=== PATIENT | female | born 1935 | race Caucasian/White ===

== ENCOUNTER 2017-10-01 10:37 | Emergency (ER) | payer OTHER ==
[2017-10-01 10:56] VITALS: BP 163/82; PULSE 90; TEMP 98.4; BMI 24.5
--- NOTE | 2017-10-01 11:11 | PDOC ---
History of Present Illness - General History Source: Patient Exam Limitations: No Limitations - History of Present Illness Initial Comments: 10/01/17 12:58 Patient is an 82 year old female with a significant past medical history of asthma, arthritis, and hiatal hernia,who presents to the ED with complaints of diffuse abdominal pain that began 2.5 weeks ago. Patient reports abdominal pain is a burning pain 20/10 pain, that she states radiated from her superpubic region to her left lower quadrant. Patient reports believing pain to be constipation due to her irritable bowel disease, prompting her to take Miralax, Duralex and miracle oil with no relief. She reports taking tylenol for pain x2 days ago with no relief. Patient reports her last bowel movement was last night that looked like jake with her previous bowel movement being x2 days ago. Denies chest pain, Sob. Denies nausea, vomiting. Denies fevers, chills. Denies contact with sick individuals, out of state travelling. Denies dysuria, hematuria, diarrhea. Denies any other symptoms. Allergies: adhesive tape, Aspirin, cephalexin monohydrate, Penicillins Social history: No smoking. No alcohol. No illicit drugs. Surgical history: None PMD: Dr. Jameson Menezes <Everardo Hyatt - Last Filed: 10/01/17 12:58> <Chayo Kelley - Last Filed: 10/01/17 15:47> - General Chief Complaint: Pain, Acute Stated Complaint: ABD PAIN Time Seen by Provider: 10/01/17 11:11 Past History <Everardo Hyatt - Last Filed: 10/01/17 12:58> - Past Medical History Anemia: No Asthma: Yes Cancer: No Cardiac Disorders: No CVA: No COPD: No CHF: No Dementia: No Diabetes: No GI Disorders: Yes (IBS) Disorders: No HTN: Yes Hypercholesterolemia: No Liver Disease: No Seizures: No Thyroid Disease: No - Surgical History Abdominal Surgery: Yes (HERNIA REPAIR) Appendectomy: Yes Cardiac Surgery: No Cholecystectomy: No Lung Surgery: No Neurologic Surgery: No Orthopedic Surgery: No - Immunization History Immunization Up to Date: Yes - Suicide/Smoking/Psychosocial Hx Smoking Status: No Smoking History: Never smoked Have you smoked in the past 12 months: No Number of Cigarettes Smoked Daily: 0 Hx Alcohol Use: No Drug/Substance Use Hx: No Substance Use Type: None <Chayo Kelley - Last Filed: 10/01/17 15:47> - Past Medical History Allergies/Adverse Reactions: Allergies Allergy/AdvReac Type Severity Reaction Status Date / Time adhesive tape Allergy Intermediate Rash Verified 01/18/17 17:50 aspirin Allergy Verified 01/18/17 10:35 cephalexin monohydrate Allergy Verified 01/18/17 10:35 [From Keflex] Penicillins Allergy Verified 01/18/17 10:35 Home Medications: Ambulatory Orders Albuterol Sulfate Inhaler - [Ventolin HFA Inhaler -] 1 - 2 inh PO QID 01/18/17 Potassium Chloride 20 meq PO DAILY 01/18/17 Theophylline Anhydrous [Yony-24] 300 mg PO DAILY 01/18/17 Amlodipine Besylate [Norvasc -] 5 mg PO DAILY 10/01/17 Hydralazine HCl 25 mg PO BID 10/01/17 Lactulose (Oral Use) [Cephulac -] 20 gm PO DAILY #1 bottle 10/01/17 Review of Systems - Review of Systems Able to Perform ROS?: Yes Comments:: 10/01/17 12:59 GENERAL/CONSTITUTIONAL: No fever or chills. No weakness. HEAD, EYES, EARS, NOSE AND THROAT: No change in vision. No ear pain or discharge. No sore throat. CARDIOVASCULAR: No chest pain or shortness of breath. RESPIRATORY: No cough, wheezing, or hemoptysis. GASTROINTESTINAL: +Abdominal pain. +Nausea. +Constipation. No vomiting, diarrhea. . GENITOURINARY: No dysuria, frequency, or change in urination. MUSCULOSKELETAL: No joint or muscle swelling or pain. No neck or back pain. SKIN: No rash NEUROLOGIC: No headache, vertigo, loss of consciousness, or change in strength/ sensation. ENDOCRINE: No increased thirst. No abnormal weight change. HEMATOLOGIC/LYMPHATIC: No anemia, easy bleeding, or history of blood clots. ALLERGIC/IMMUNOLOGIC: No hives or skin allergy. <Everardo Hyatt - Last Filed: 10/01/17 12:58> *Physical Exam - Vital Signs Last Vital Signs Temp Pulse Resp BP Pulse Ox 98.4 F 90 16 163/82 96 10/01/17 10:39 10/01/17 10:39 10/01/17 10:39 10/01/17 10:39 10/01/17 10:39 - Physical Exam Comments: 10/01/17 12:59 GENERAL: Awake, alert, and fully oriented, in no acute distress HEAD: No signs of trauma EYES: PERRLA, EOMI, sclera anicteric, conjunctiva clear ENT: Auricles normal inspection, hearing grossly normal, nares patent, oropharynx clear without exudates. Moist mucosa NECK: Normal ROM, supple, no lymphadenopathy, JVD, or masses LUNGS: Breath sounds equal, clear to auscultation bilaterally. No wheezes, and no crackles HEART: Regular rate and rhythm, normal S1 and S2, no murmurs, rubs or gallops ABDOMEN: Soft, nontender, normoactive bowel sounds. No guarding, no rebound. No masses EXTREMITIES: Normal range of motion, no edema. No clubbing or cyanosis. No cords, erythema, or tenderness NEUROLOGICAL: Cranial nerves II through XII grossly intact. Normal speech, normal gait SKIN: Warm, Dry, normal turgor, no rashes or lesions noted. <Everardo Hyatt - Last Filed: 10/01/17 12:58> - Vital Signs Last Vital Signs Temp Pulse Resp BP Pulse Ox 98.4 F 90 16 163/82 96 10/01/17 10:39 10/01/17 10:39 10/01/17 10:39 10/01/17 10:39 10/01/17 10:39 <Chayo Kelley - Last Filed: 10/01/17 15:47> ED Treatment Course - LABORATORY CBC & Chemistry Diagram: 10/01/17 12:06 10/01/17 12:06 - ADDITIONAL ORDERS Additional order review: Laboratory Results 10/01/17 10/01/17 10/01/17 12:06 12:06 12:06 Sodium 149 H Potassium 3.6 Chloride 110 H Carbon Dioxide 29 Anion Gap 10 BUN 23 H Creatinine 1.1 H Creat Clearance w eGFR 47.55 Random Glucose 114 H Lactic Acid 1.5 Calcium 10.1 Total Bilirubin 0.6 AST 29 ALT 33 Alkaline Phosphatase 71 Total Protein 6.6 Albumin 4.2 Urine Color Ltyellow Urine Appearance Clear Urine pH 7.0 D Ur Specific [place] 1.012 Urine Protein 2+ H Urine Glucose (UA) Negative Urine Ketones Trace H Urine Blood Negative Urine Nitrite Negative Urine Bilirubin Negative Urine Urobilinogen Negative Ur Leukocyte Esterase 1+ H Urine WBC (Auto) <1 Urine RBC (Auto) 5 Ur Epithelial Cells Rare 10/01/17 12:06 RBC 4.73 MCV 89.0 MCHC 34.3 RDW 14.3 MPV 8.6 Neutrophils % 81.6 Lymphocytes % 9.8 D Monocytes % 6.1 Eosinophils % 1.7 Basophils % 0.8 <Everardo Hyatt - Last Filed: 10/01/17 12:58> - LABORATORY CBC & Chemistry Diagram: 10/01/17 12:06 10/01/17 12:06 <Chayo Kelley - Last Filed: 10/01/17 15:47> Medical Decision Making - Medical Decision Making 10/01/17 15:43 Pt presents to the ED complaining of a several week history of generalized abdominal pain and constipation. Differential included diverticulitis, less likely UTI, less likely mesenteric ischemia. Abdomen was non tender on my exam , but given patient's age, CT abdomen was performed and is negative for acute changes except for constipation. Will treat with lactulose and discharge home with follow up with PMD. 10/01/17 15:45 <Chayo Kelley - Last Filed: 10/01/17 15:47> *DC/Admit/Observation/Transfer - Attestations Scribe Attestion: 10/01/17 13:00 Documentation prepared by Everardo Hyatt, acting as medical billing manager for Chayo Kelley MD. <Everardo Hyatt - Last Filed: 10/01/17 12:58> - Discharge Dispostion Decision to Admit order: No <Chayo Kelley - Last Filed: 10/01/17 15:47> Diagnosis at time of Disposition: Abdominal pain Qualifiers: Abdominal location: generalized Qualified Code(s): R10.84 - Generalized abdominal pain - Discharge Dispostion Disposition: HOME Condition at time of disposition: Good - Prescriptions Prescriptions: Lactulose (Oral Use) [Cephulac -] 20 gm PO DAILY #1 bottle - Patient Instructions Printed Discharge Instructions: DI for Abdominal Pain-Adult Additional Instructions: return to the ED for severe pain, severe nausea and vomiting, bloody vomit or stool, pain with fever, other new or worsening symptoms. Make sure that you call Dr. Menezes on Wednesday for follow up.
[2017-10-01 12:31] LABS: BASO % 0.8 % (0-2.0); EOS % 1.7 % (0-4.5); HEMATOCRIT 42.1 % (32.4-45.2); HEMOGLOBIN 14.4 GM/dL (10.7-15.3); LYMPH % 9.8 % (8-40); MCH 30.5 pg (25.7-33.7); MCHC 34.3 g/dl (32.0-36.0); MEAN PLT VOLUME 8.6 fl (7.5-11.1); MONO % 6.1 % (3.8-10.2); NEUT % 81.6 % (42.8-82.8); PLATELET COUNT 136 K/MM3 (134-434); RBC 4.73 M/mm3 (3.60-5.2); RDW 14.3 % (11.6-15.6); WHITE BLOOD COUNT 8.6 K/mm3 (4.0-10.0)
[2017-10-01 12:33] LABS: URINE APPEARANCE CLEAR; URINE BILIRUBIN NEGATIVE (<2.0 mg/dL); URINE COLOR LTYELLOW; URINE GLUCOSE (UA) NEGATIVE (NEGATIVE); URINE KETONE TRACE (NEGATIVE); URINE NITRITE NEGATIVE (NEGATIVE); URINE UROBILINOGEN NEGATIVE mg/dL (0.2-1.0)
[2017-10-01 12:38] LABS: URINE LEUK ESTERASE 1+ (NEGATIVE); URINE PROTEIN 2+ (NEGATIVE)
[2017-10-01 12:50] LABS: ALBUMIN 4.2 g/dl (3.4-5.0); ALK PHOS 71 U/L (45-117); ANION GAP 10 (8-16); BILIRUBIN,TOTAL 0.6 mg/dL (0.2-1.0); BLOOD UREA NITROGEN 23 mg/dL (7-18); CALCIUM 10.1 mg/dL (8.5-10.1); CHLORIDE 110 mmol/L (98-107); CO2 29 mmol/L (21-32); CREATININE 1.1 mg/dL (0.55-1.02); GLUCOSE,RANDOM 114 mg/dL (74-106); POTASSIUM 3.6 mmol/L (3.5-5.1); SGOT/AST 29 U/L (15-37); SGPT/ALT 33 U/L (12-78); SODIUM 149 mmol/L (136-145); TOT PROT 6.6 g/dl (6.4-8.2)
[2017-10-01 12:52] LABS: EPI CELLS RARE /HPF (FEW)
[2017-10-01] MEDS ORDERED: ACETAMINOPHEN 1000 MG/100 ML VIAL (NON FORMULARY) IVPB ONE (14:46)
[2017-10-01] MEDS ORDERED: LACTULOSE 20 GM/30 ML UDC (FOR ORAL USE ONLY) PO ONE (15:35)
[2017-10-01] MEDS ORDERED: LACTULOSE 20 GM/30 ML UDC (FOR ORAL USE ONLY) ONE (16:00)
== END 2017-10-01 16:30 | disposition home or self-care (01) ==
LOC: JER 10:37
DX: R10.84 Generalized abdominal pain (principal); K59.00 Constipation, unspecified; J45.909 Unspecified asthma, uncomplicated
CPT/HCPCS: 36415; 74176-TC; 80053; 81003; 81015; 83605; 85025; 99281-25

== ENCOUNTER 2019-10-25 15:19 | Inpatient (IN) | payer OTHER ==
[2019-10-25 16:02] LABS: BASO % 0.8 % (0-2.0); EOS % 1.7 % (0-4.5); HEMATOCRIT 38.6 % (32.4-45.2); HEMOGLOBIN 12.9 GM/dL (10.7-15.3); LYMPH % 8.4 % (8-40); MCH 30.7 pg (25.7-33.7); MCHC 33.5 g/dl (32.0-36.0); MEAN CELL VOLUME 91.6 fl (80-96); MEAN PLT VOLUME 8.9 fl (7.5-11.1); NEUT % 81.1 % (42.8-82.8); PLATELET COUNT 132 K/MM3 (134-434); RBC 4.21 M/mm3 (3.60-5.2); RDW 15.3 % (11.6-15.6); WHITE BLOOD COUNT 7.5 K/mm3 (4.0-10.0)
[2019-10-25 16:10] LABS: EPI CELLS 8 /uL (0-25.1); HYALINE CASTS 1 /uL (0-3.1); PH,URINE 7.5 (5.0-8.0); URINE APPEARANCE CLEAR; URINE BACTERIA 122 /uL (0-1359); URINE BILIRUBIN NEGATIVE (NEGATIVE); URINE COLOR YELLOW; URINE GLUCOSE (UA) NEGATIVE (NEGATIVE); URINE KETONE NEGATIVE (NEGATIVE); URINE LEUK ESTERASE TRACE (NEGATIVE); URINE NITRITE NEGATIVE (NEGATIVE); URINE PROTEIN 3+ (NEGATIVE); URINE RBC 5 /uL (0-23.9); URINE UROBILINOGEN 0.2 mg/dL (0.2-1.0); URINE WBC 31 /uL (0-25.8)
[2019-10-25 16:11] LABS: INR 1.05 (0.83-1.09); PROTHROMBIN TIME (PATIENT) 12.4 SEC (9.7-13.0)
[2019-10-25 16:32] LABS: ALK PHOS 109 U/L (45-117); ANION GAP 7 MMOL/L (8-16); BILIRUBIN,TOTAL 0.9 mg/dL (0.2-1); BLOOD UREA NITROGEN 41.2 mg/dL (7-18); CALCIUM 9.8 mg/dL (8.5-10.1); CHLORIDE 108 mmol/L (98-107); CO2 30 mmol/L (21-32); CREATININE 1.7 mg/dL (0.55-1.3); GLUCOSE,RANDOM 112 mg/dL (74-106); POTASSIUM 4.3 mmol/L (3.5-5.1); SGOT/AST 31 U/L (15-37); SGPT/ALT 41 U/L (13-61); SODIUM 145 mmol/L (136-145); TOT PROT 6.3 g/dl (6.4-8.2)
--- NOTE | 2019-10-25 18:17 | PDOC ---
Documentation entered by Lindsay Aguila SCRIBE, acting as scribe for Anupama Coleman MD. Anupama Coleman MD: This documentation has been prepared by the earnestineibeMingo Lincy, SCRIBE, under my direction and personally reviewed by me in its entirety. I confirm that the documentation accurately reflects all work, treatment, procedures, and medical decision making performed by me. 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 Garcia for concerns for elevated blood pressure blurry vision and worsening leg edema. In the office patient was found to be 200/110 despite taking multiple anti hypertensives at home. she was prescribed imdur 60, but did not start taking it yet. She does also complain of some mild shortness of breath states that she did have 3 separate intermittent falls over the last several weeks patient states there was one episode a few weeks back when she was found on the floor 10/13 where she has no recollection of how she wound up there . states she was sitting in chair watching tv, next thing found her self on floor. was able to ambulate following, did not see physician at that time.most recent falling was yesterday, she was sitting in chair, had sense chair was tipping, she was falling, but did not actually fall.. at this time she is denying any focal weakness no nausea no vomiting no current chest pain 10/25/19 18:12 - Physicial Exam PE: 10/25/19 18:14 Awake alert no acute distress lungs are with crackles at bilateral bases heart is irregularly irregular tachycardia no murmurs rubs or gallops abdomen is soft nontender extremities are noted for bilateral edema no calf tenderness 2+ DP PT pulses nuero CN II - XiI intact. 5/5 left upper and lower, very subtle right upper and lower ext weakness. 4+/ 5. finger to nose intact. gait not tested. speech clear. alert oriented x 3. 10/25/19 19:45 - Medical Decision Making 08/19/20 18:15 84-year-old history of CKD hypertension here today with resistant hypertension blurry vision and frequent falls Differential diagnosis includes hypertensive urgency versus hypertensive emergency inclusive of possible pulmonary edema stroke worsening renal failure patient is also having blurry vision. Plan CT head to rule out any CVA or traumatic injury from her falls CBC CMP troponin UA EKG chest x-ray patient will likely require admission for persistent hypertension. Chest x-ray shows mild congestive changes consistent with her creatinine is elevated from baseline of 1.3-1.7 consistent with worsening renal failure. Plan to treat her hypertension with nitroglycerin to unload preload in addition to diuretics. Patient will be admitted will consult her box storage worker Dr. Chin may be admitted to telemetry for hypertensive emergency 10/25/19 18:18 egk with new onset a flutter. cxr mild congestive changes. ct head no acute pathology. may consider MRI on admission due to subtle right sided weakness. 10/25/19 18:[address] haider, note, pt was supposed to initiate imdur 60 mg for resistant htn, filed script but did not start it. 10/25/19 19:46 Heart Score/ECG Review #1 General ECG Interpretation: Normal Rate, Normal Intervals, No acute ischemic changes Compared to previous ECG there are: Other (atrial flutter, rate [address] bpm[address] left axis. no st elevation or depression.) Discharge - Discharge Information Problems reviewed: Yes Clinical Impression/Diagnosis: DONN (acute kidney injury), Hypertensive emergency, Pulmonary edema, Flutter- fibrillation - Admission Yes - Follow up/Referral - Patient Discharge Instructions - Post Discharge Activity
--- NOTE | 2019-10-25 18:25 | PDOC ---
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 Patient reports that over the past months she has had a number of falls w/ or w/o syncopal events (patient is unsure of exact details regarding these episodes). She reports that since yesterday she has had a headache, blurry vision, and instability while walking. She presented to her mixing tank operator this AM who took her BP which was in the 200s and recommended she present to the ER for further evaluation. Patient also reports some SOB, denies fever, chills, N/V/D, chest pain, loss of strength or sensation, or speech difficulties. Constitutional: No Weight Change, No Fever, No Chills, No Night Sweats, No Fatigue, No Malaise ENT/Mouth: No Hearing Changes, No Ear Pain, No Nasal Congestion, No Sinus Pain, No Hoarseness, No sore throat, No Rhinorrhea, No Swallowing Difficulty Eyes: No Eye Pain, No Swelling, No Redness, No Foreign Body, No Discharge Cardiovascular: No Chest Pain, No PND, No Orthopnea, No Claudication, No Edema, No Palpitations Respiratory: No Cough, No Sputum, No Wheezing, No Smoke Exposure, No Dyspnea Gastrointestinal: No Nausea, No Vomiting, No Diarrhea, No Constipation, No Pain, No Heartburn, No Anorexia, No Dysphagia, No Hematochezia, No Melena, No Flatulence, No Jaundice Genitourinary: No Dysmenorrhea, No DUB, No Dyspareunia, No Dysuria, No Urinary Frequency, No Hematuria, No Urinary Incontinence, No Urgency, No Flank Pain, No Urinary Flow Changes, No Hesitancy Musculoskeletal: No Arthralgias, No Myalgias, No Joint Swelling, No Joint Stiffness, No Back Pain, No Neck Pain, No Injury History Skin: No Skin Lesions, No Pruritis, No Hair Changes, No Breast/Skin Changes, No Nipple Discharge Neuro: No Weakness, No Numbness, No Paresthesias, No Dizziness, No Coordination Changes Psych: No Anxiety/Panic, No Depression, No Insomnia, No Personality Changes, No Delusions, No Rumination, No SI/HI/AH/VH, No Social Issues, No Memory Changes, No Violence/Abuse Hx., No Eating Concerns Heme/Lymph: No Bruising, No Bleeding, No Transfusions History, No Lymphadenopathy Endocrine: No Polyuria, No Polydipsia, No Temperature Intolerance Past History - Medical History Allergies/Adverse Reactions: Allergies Allergy/AdvReac Type Severity Reaction Status Date / Time adhesive tape Allergy Intermediate Rash Verified 10/25/19 15:37 aspirin Allergy Verified 10/25/19 15:37 cephalexin monohydrate Allergy Verified 10/25/19 15:37 [From Keflex] Penicillins Allergy Verified 10/25/19 15:37 Home Medications: Ambulatory Orders Albuterol Sulfate Inhaler - [Ventolin HFA Inhaler -] 1 - 2 inh PO QID 01/18/17 Potassium Chloride 20 meq PO DAILY 01/18/17 Theophylline Anhydrous [Yony-24] 300 mg PO DAILY 01/18/17 Hydralazine HCl 25 mg PO BID 10/01/17 Miscellaneous Medical Supply [Outpatient Order] 1 each ASDIR #1 mis 10/08/17 Diltiazem Cd [Cardizem Cd -] 120 mg PO DAILY 10/25/19 Furosemide [Lasix -] 40 mg PO DAILY 10/25/19 Isosorbide Mononitrate [Isosorbide Mononitrate ER] 60 mg PO DAILY 10/25/19 Losartan Potassium [Cozaar] 100 mg PO DAILY 10/25/19 Anemia: No Asthma: Yes Cancer: No Cardiac Disorders: No CVA: No COPD: No CHF: No Dementia: No Diabetes: No GI Disorders: Yes (IBS) Disorders: No HTN: Yes Hypercholesterolemia: No Liver Disease: No Seizures: No Thyroid Disease: No Other medical history: ovarian cysts - Surgical History Abdominal Surgery: Yes (HERNIA REPAIR) Appendectomy: Yes Cardiac Surgery: No Cholecystectomy: No Lung Surgery: No Neurologic Surgery: No Orthopedic Surgery: No - Reproductive History Is Patient Now?: No - Immunization History Immunization Up to Date: Yes - Psycho-Social/Smoking History Smoking Status: No Smoking History: Unknown if ever smoked Have you smoked in the past 12 months: No Number of Cigarettes Smoked Daily: 0 - Substance Abuse Hx (Audit-C & DAST Scrn) How often the patient has a drink containing alcohol: Never Score: In Men: 4 or > Positive; In Women: 3 or > Positive: 0 Screen Result (Pos requires Nsg. Audit-10AR): Negative In the last yr the pt used illegal drug/Rx for NonMed reason: No Score: Yes response is considered Positive: 0 Screen Result (Positive result requires Nsg. DAST-10): Negative *Physical Exam - Vital Signs Last Vital Signs Temp Pulse Resp BP Pulse Ox 98.1 F 91 H 20 161/101 H 99 10/25/19 15:20 10/25/19 18:05 10/25/19 18:05 10/25/19 18:05 10/25/19 18:05 - Physical Exam General Appearance: Yes: Nourished, Appropriately Dressed HEENT: positive: EOMI, VITOR, Normal ENT Inspection, Normal Voice Neck: positive: Trachea midline, Normal Thyroid Respiratory/Chest: positive: Crackles Cardiovascular: positive: S1, S2, Tachycardia Gastrointestinal/Abdominal: positive: Normal Bowel Sounds, Flat Musculoskeletal: positive: Normal Inspection Extremity: positive: Normal Capillary Refill Integumentary: positive: Dry, Warm Neurologic: 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: 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 II-XII NML intact, Fully Oriented, Alert, Normal Mood/Affect, Normal Response, Motor Strength 5/5 ED Treatment Course - LABORATORY CBC & Chemistry Diagram: 10/25/19 15:40 10/25/19 15:40 - ADDITIONAL ORDERS Additional order review: Laboratory Results 10/25/19 10/25/19 10/25/19 15:55 15:40 15:40 PT with INR 12.40 INR 1.05 Sodium 145 Potassium 4.3 Chloride 108 H Carbon Dioxide 30 Anion Gap 7 L BUN 41.2 H Creatinine 1.7 H Est GFR (CKD-EPI)AfAm 31.54 Est GFR (CKD-EPI)NonAf 27.22 Random Glucose 112 H Calcium 9.8 Total Bilirubin 0.9 AST 31 ALT 41 Alkaline Phosphatase 109 Creatine Kinase 99 Troponin I < 0.02 Total Protein 6.3 L Albumin 4.0 Urine Color Yellow Urine Appearance Clear Urine pH 7.5 Ur Specific [place] 1.012 Urine Protein 3+ H Urine Glucose (UA) Negative Urine Ketones Negative Urine Blood Negative Urine Nitrite Negative Urine Bilirubin Negative Urine Urobilinogen 0.2 Ur Leukocyte Esterase Trace Urine WBC (Auto) 31 Urine RBC (Auto) 5 Urine Casts (Auto) 1 U Epithel Cells (Auto) 8 Urine Bacteria (Auto) 122 10/25/19 15:40 RBC 4.21 MCV 91.6 MCHC 33.5 RDW 15.3 MPV 8.9 Neutrophils % 81.1 Lymphocytes % 8.4 D Monocytes % 8.0 Eosinophils % 1.7 Basophils % 0.8 - RADIOLOGY Radiology Studies Ordered: Category Date Time Status HEAD CT WITHOUT CONTRAST [CT] Stat CT Scan 10/25/19 16:27 Completed CHEST PA & LAT [RAD] Stat Radiology 10/25/19 16:26 Completed Medical Decision Making - Medical Decision Making 84 YOF h/o CKD, HTN, Asthma, who 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 Patient reports that over the past months she has had a number of falls w/ or w/o syncopal events (patient is unsure of exact details regarding these episodes). She reports that since yesterday she has had a headache, blurry vision, and instability while walking. She presented to her mixing tank operator this AM who took her BP which was in the 200s and recommended she present to the ER for further evaluation. Patient also reports some SOB, denies fever, chills, N/V/D, chest pain, loss of strength or sensation, or speech difficulties. On arrival patients BP was in 200s, her O2 sat was 90s on room air, vitals otherwise wnl. Physical exam reveals bilateral lower extremity edema. ddx: hypertensive emergency, CHF, DONN, CVA plan: CT head, CXR, CBC, CMP, sublingual nitroglycerine, nitropaste, furosemide. reassess: patients BP is 170s, CT head negative, CXR reveals minor pulmonary edema, creatinine 1.7 (baseline 1.38), will admit patient to tele for CHF, hypertensive emergency, and DONN dispo: admit to Dr. Monzon. Discharge - Discharge Information Problems reviewed: Yes Clinical Impression/Diagnosis: DONN (acute kidney injury), Hypertensive emergency, Pulmonary edema, Flutter- fibrillation - Follow up/Referral - Patient Discharge Instructions - Post Discharge Activity
[2019-10-25] MEDS ORDERED: NITROGLYCERIN SUBLINGUAL 1/150 0.4 MG TAB SL ONE (18:33)
[2019-10-25] MEDS ORDERED: NITROGLYCERIN 2% OINTMENT - 1GM PACKET TD ONE ×2 (18:33→18:45)
[2019-10-25] MEDS ORDERED: FUROSEMIDE 40 MG/4 ML INJECTABLE VIAL IVPUSH ONE (18:45)
[2019-10-25] MEDS ORDERED: FUROSEMIDE 40 MG/4 ML INJECTABLE VIAL ONE (18:57)
[2019-10-25] MEDS ORDERED: HEPARIN NA (PORCINE) 5,000 UNITS/ML 1ML VIAL IVPUSH PRN ×3 (21:58→22:04)
[2019-10-25] MEDS ORDERED: NIFEdipine 10 MG CAPSULE (FP) PO SCH (22:00)
[2019-10-25] MEDS ORDERED: HEPARIN NA (PORCINE) 5,000 UNITS/ML 1ML VIAL SQ SCH (22:00)
[2019-10-25] MEDS ORDERED: NIFEdipine 10 MG CAPSULE (FP) PO ONE (22:03)
--- NOTE | 2019-10-25 23:20 | PN ---
Teaching Attending Note Name of Resident: Ghassan Beltrán ATTENDING PHYSICIAN STATEMENT I saw and evaluated the patient. I reviewed the resident's note and discussed the case with the resident. I agree with the resident's findings and plan as documented. SUBJECTIVE: 84 years old female with PMH of CKD stage 3, HTN, ?CHF was referred from nephrology office due to elevated BP. She c/o blurry vision,dizziness and mild shortness of breath. She also reported b/l worsening LE swelling and functional decline. She also reports gait instabilty She denies chest pain, nausea,vomiting, fever after coming to Ed she was found to have Chest x-ray shows mild congestive changes consistent with her creatinine is elevated from baseline of 1.3-1.7 he was found to have high BP in ED - 211/124. she also had blurry vision and headache EKg showed A flutter ? new onset OBJECTIVE: Last Vital Signs Temp Pulse Resp BP Pulse Ox 98.1 F 90 17 177/107 H 99 10/25/19 15:20 10/25/19 18:25 10/25/19 18:25 10/25/19 19:08 10/25/19 18:25 Laboratory Results - last 24 hr 10/25/19 10/25/19 10/25/19 15:40 15:40 15:40 WBC 7.5 RBC 4.21 Hgb 12.9 Hct 38.6 MCV 91.6 MCH 30.7 MCHC 33.5 RDW 15.3 Plt Count 132 L MPV 8.9 Absolute Neuts (auto) 6.0 Neutrophils % 81.1 Lymphocytes % 8.4 D Monocytes % 8.0 Eosinophils % 1.7 Basophils % 0.8 Nucleated RBC % 0 PT with INR 12.40 INR 1.05 PTT (Actin FS) Sodium 145 Potassium 4.3 Chloride 108 H Carbon Dioxide 30 Anion Gap 7 L BUN 41.2 H Creatinine 1.7 H Est GFR (CKD-EPI)AfAm 31.54 Est GFR (CKD-EPI)NonAf 27.22 Random Glucose 112 H Calcium 9.8 Total Bilirubin 0.9 AST 31 ALT 41 Alkaline Phosphatase 109 Creatine Kinase 99 Troponin I < 0.02 Total Protein 6.3 L Albumin 4.0 Urine Color Urine Appearance Urine pH Ur Specific [place] Urine Protein Urine Glucose (UA) Urine Ketones Urine Blood Urine Nitrite Urine Bilirubin Urine Urobilinogen Ur Leukocyte Esterase Urine WBC (Auto) Urine RBC (Auto) Urine Casts (Auto) U Epithel Cells (Auto) Urine Bacteria (Auto) 10/25/19 10/25/19 15:55 23:40 WBC RBC Hgb Hct MCV MCH MCHC RDW Plt Count MPV Absolute Neuts (auto) Neutrophils % Lymphocytes % Monocytes % Eosinophils % Basophils % Nucleated RBC % PT with INR 12.50 INR 1.06 PTT (Actin FS) 34.0 Sodium Potassium Chloride Carbon Dioxide Anion Gap BUN Creatinine Est GFR (CKD-EPI)AfAm Est GFR (CKD-EPI)NonAf Random Glucose Calcium Total Bilirubin AST ALT Alkaline Phosphatase Creatine Kinase Troponin I Total Protein Albumin Urine Color Yellow Urine Appearance Clear Urine pH 7.5 Ur Specific [place] 1.012 Urine Protein 3+ H Urine Glucose (UA) Negative Urine Ketones Negative Urine Blood Negative Urine Nitrite Negative Urine Bilirubin Negative Urine Urobilinogen 0.2 Ur Leukocyte Esterase Trace Urine WBC (Auto) 31 Urine RBC (Auto) 5 Urine Casts (Auto) 1 U Epithel Cells (Auto) 8 Urine Bacteria (Auto) 122 General Appearance: Not in acyte distress HEENT: positive: EOMI, VITOR, Normal ENT Inspection, Normal Voice Neck: positive: Trachea midline, Normal Thyroid Respiratory/Chest: positive:bibasilar rales Cardiovascular: positive: irregular, No MRG Gastrointestinal/Abdominal: Mild generalized tenderness Musculoskeletal: positive: b/l lower extremities pitting edema Integumentary: positive: Normal Color, Dry, Warm Neurologic: 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 monitor BP Will Add coreg if needed will be also helpful with aflutter rate control confirm and resume home meds from AM ECHO start IV heparin for AC. Consider Eliquis from tomorrow based on ECHO Cardiology eval for optimization Iv lasix 40 BID strict intake output fluid restriction UA, TSH, mg,phos, CPK, urine lytes PT/rehab Duonebs PRn for Asthma Discussed with house staff in [facility]
[2019-10-26] MEDS ORDERED: SODIUM CHLORIDE 250 ML IV STA (00:39)
[2019-10-26 00:54] LABS: INR 1.06 (0.83-1.09); PROTHROMBIN TIME (PATIENT) 12.5 SEC (9.7-13.0)
--- NOTE | 2019-10-26 01:01 | HP ---
CHIEF COMPLAINT: high blood pressure PCP: Dr. 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 Pt reports that over the last 2-3 days she has had intermittent blurry vision and headaches. She also complains of decreased urination and mild SOB with exertion during the same duration. Pt also reports increased gait instability over the last several months, with 2-3 mechanical falls without syncope or head trauma. Pt denies chest pain, abdominal pain, fevers, chills, nausea, vomiting, constipation, diarrhea, confusion after falls, dizziness, weakness, dysuria, or recent weight loss. On arrival pt's blood pressure was 211/124 and was experiencing blurry vision and a headache. ER course was notable for: (1)Nitro paste (1 inch); 0.4 mg SL nitro was administered (2)IV lasix 40 administered (3)CT head negative; CXR with mild pulmonary edema; Cr mildly elevated from baseline (1.7; baseline 1.38) Recent Travel: none Sick contacts: none PAST MEDICAL HISTORY: as per HPI PAST SURGICAL HISTORY: pt with multiple abdominal surgeries in the past with adhesions Social History: Lives in an apartment alone in [place]. Her only other friend/family that she is close to his her sister who lives in [place] now (used to live in [place]). Reports that her functional status at home is declining. Smoking: denies Alcohol: denies Drugs: denies Allergies adhesive tape Allergy (Intermediate, Verified 10/25/19 15:37) Rash aspirin Allergy (Verified 10/25/19 15:37) cephalexin monohydrate [From Keflex] Allergy (Verified 10/25/19 15:37) Penicillins Allergy (Verified 10/25/19 15:37) HOME MEDICATIONS: Home Medications Medication Instructions Recorded Albuterol Sulfate Inhaler - 1 - 2 inh PO QID 01/18/17 [Ventolin HFA Inhaler -] Potassium Chloride 20 meq PO DAILY 01/18/17 Theophylline Anhydrous [Yony-24] 300 mg PO DAILY 01/18/17 Hydralazine HCl 25 mg PO BID 10/01/17 Miscellaneous Medical Supply 1 each ASDIR #1 mis 10/08/17 [Outpatient Order] Diltiazem Cd [Cardizem Cd -] 120 mg PO DAILY 10/25/19 Furosemide [Lasix -] 40 mg PO DAILY 10/25/19 Isosorbide Mononitrate [Isosorbide 60 mg PO DAILY 10/25/19 Mononitrate ER] Losartan Potassium [Cozaar] 100 mg PO DAILY 10/25/19 REVIEW OF SYSTEMS as per HPI PHYSICAL EXAMINATION Vital Signs - 24 hr 10/25/19 10/25/19 10/25/19 15:20 15:32 16:00 Temperature 98.1 F Pulse Rate 97 H 90 Pulse Rate [ 103 H Apical] Respiratory 18 24 H Rate Blood Pressure 211/124 H Blood Pressure 184/114 H [Left Arm] O2 Sat by Pulse 92 L 93 L 99 Oximetry (%) 10/25/19 10/25/19 10/25/19 16:51 17:34 18:05 Temperature Pulse Rate Pulse Rate [ 90 94 H 91 H Apical] Respiratory 25 H 23 H 20 Rate Blood Pressure Blood Pressure 181/116 H 186/111 H 161/101 H [Left Arm] O2 Sat by Pulse 99 99 99 Oximetry (%) 10/25/19 10/25/19 10/25/19 18:25 19:08 22:45 Temperature Pulse Rate Pulse Rate [ 90 92 H Apical] Respiratory 17 18 Rate Blood Pressure Blood Pressure 191/123 H 177/107 H 170/120 H [Left Arm] O2 Sat by Pulse 99 94 L Oximetry (%) 10/26/19 00:01 Temperature 97.2 F L Pulse Rate 82 Pulse Rate [ Apical] Respiratory 18 Rate Blood Pressure 80/48 L Blood Pressure [Left Arm] O2 Sat by Pulse 94 L Oximetry (%) GENERAL: Awake, alert, and fully oriented, in no acute distress. HEAD: Normal with no signs of trauma. EYES: Pupils equal, round and reactive to light, extraocular movements intact, sclera anicteric, conjunctiva clear. EARS, NOSE, THROAT: oropharynx clear without exudates. Moist mucous membranes. NECK: Normal range of motion, supple without lymphadenopathy. LUNGS: crackles appreciated at b/l bases. No accessory muscle use. HEART: irregular rate and rhythm, normal S1 and S2 without murmur, rub or gallop. ABDOMEN: Soft, mild discomfort on palpation of the abdomen, not distended, normoactive bowel sounds. MUSCULOSKELETAL: Moving all extremities equally and spontaneously. UPPER EXTREMITIES: 2+ pulses, warm, well-perfused. No peripheral edema. LOWER EXTREMITIES: 2+ pulses, warm, well-perfused. 1+ to 2+ pitting edema in b/l lower extremities. NEUROLOGICAL: Cranial nerves II-XII intact. Normal speech. No focal neurological deficits PSYCHIATRIC: Cooperative. Good eye contact. Appropriate mood and affect. SKIN: Warm, dry, normal turgor, no rashes or lesions noted, normal capillary refill. Laboratory Results - last 24 hr 10/25/19 10/25/19 10/25/19 15:40 15:40 15:40 WBC 7.5 RBC 4.21 Hgb 12.9 Hct 38.6 MCV 91.6 MCH 30.7 MCHC 33.5 RDW 15.3 Plt Count 132 L MPV 8.9 Absolute Neuts (auto) 6.0 Neutrophils % 81.1 Lymphocytes % 8.4 D Monocytes % 8.0 Eosinophils % 1.7 Basophils % 0.8 Nucleated RBC % 0 PT with INR 12.40 INR 1.05 Sodium 145 Potassium 4.3 Chloride 108 H Carbon Dioxide 30 Anion Gap 7 L BUN 41.2 H Creatinine 1.7 H Est GFR (CKD-EPI)AfAm 31.54 Est GFR (CKD-EPI)NonAf 27.22 Random Glucose 112 H Calcium 9.8 Total Bilirubin 0.9 AST 31 ALT 41 Alkaline Phosphatase 109 Creatine Kinase 99 Troponin I < 0.02 Total Protein 6.3 L Albumin 4.0 Urine Color Urine Appearance Urine pH Ur Specific [place] Urine Protein Urine Glucose (UA) Urine Ketones Urine Blood Urine Nitrite Urine Bilirubin Urine Urobilinogen Ur Leukocyte Esterase Urine WBC (Auto) Urine RBC (Auto) Urine Casts (Auto) U Epithel Cells (Auto) Urine Bacteria (Auto) 10/25/19 15:55 WBC RBC Hgb Hct MCV MCH MCHC RDW Plt Count MPV Absolute Neuts (auto) Neutrophils % Lymphocytes % Monocytes % Eosinophils % Basophils % Nucleated RBC % PT with INR INR Sodium Potassium Chloride Carbon Dioxide Anion Gap BUN Creatinine Est GFR (CKD-EPI)AfAm Est GFR (CKD-EPI)NonAf Random Glucose Calcium Total Bilirubin AST ALT Alkaline Phosphatase Creatine Kinase Troponin I Total Protein Albumin Urine Color Yellow Urine Appearance Clear Urine pH 7.5 Ur Specific [place] 1.012 Urine Protein 3+ H Urine Glucose (UA) Negative Urine Ketones Negative Urine Blood Negative Urine Nitrite Negative Urine Bilirubin Negative Urine Urobilinogen 0.2 Ur Leukocyte Esterase Trace Urine WBC (Auto) 31 Urine RBC (Auto) 5 Urine Casts (Auto) 1 U Epithel Cells (Auto) 8 Urine Bacteria (Auto) 122 ASSESSMENT/PLAN: 84 years old female with PMH of CKD stage 3, HTN, ?CHF, and asthma being admitted for evaluation and treatment of hypertensive emergency; pt also being treated for a possible CHF exacerbation, and paroxysmal atrial flutter with RVR. 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 consider eliquis from tomorrow based on ECHO - cardiology consulted #DONN On CKD Stage 3 - f/u UA, urine lytes - f/u lytes, Mg, Phos, CPK, TSH #Asthma - albuterol inhaler prn #DVT PPx Pt on heparin drip for AC with paroxysmal AFlutter for now #FEN -F - PO -E - monitor lytes, replete PRN -N - low sodium, renal diet #Dispo - admit to tele Family Medical History Family History: As Documented Visit type - Medication Review Med list reviewed for High Risk Meds patients 65 and older: Yes - Emergency Visit Emergency Visit: Yes ED Registration Date: 10/25/19 Care time: The patient presented to the Emergency Department on the above date and was hospitalized for further evaluation of their emergent condition. - New Patient This patient is new to me today: Yes Date on this admission: 10/26/19 - Critical Care Critical Care patient: No ATTENDING PHYSICIAN STATEMENT I saw and evaluated the patient. I reviewed the resident's note and discussed the case with the resident. I agree with the resident's findings and plan as documented. SUBJECTIVE: OBJECTIVE: ASSESSMENT AND PLAN:
[2019-10-26] MEDS: HEPARIN - 25,000 UNIT in SODIUM CHLORIDE 495 ML IV SCH (01:15)
[2019-10-26] MEDS ORDERED: NIFEdipine 10 MG CAPSULE (FP) PO SCH (04:00)
--- NOTE | 2019-10-26 07:17 | PN ---
Progress Note, Physician History of Present Illness: private patient at my office...will resume care - Current Medication List Current Medications: Active Medications Diltiazem HCl (Cardizem Cd -) 120 mg PO DAILY IMELDA Furosemide (Lasix -) 40 mg PO DAILY IMELDA Heparin Sodium (Porcine) (Heparin -) 1,000 unit IVPUSH PRN PRN PRN Reason: Heparin Heparin Sodium (Porcine) (Heparin -) 5,000 unit IVPUSH PRN PRN PRN Reason: Heparin Heparin Sodium (Porcine) 25, (000 unit/ Sodium Chloride) 500 mls @ 16 mls/hr IV TITR IMELDA; Protocol Last Admin: 10/26/19 01:15 Dose: 800 unit/hr, 16 mls/hr Documented by: Isosorbide Mononitrate (Imdur -) 60 mg PO DAILY IMELDA Nifedipine (Procardia Capsule -) 10 mg PO Q6H IMELDA Last Admin: 10/26/19 04:15 Dose: Not Given Documented by: - Objective Vital Signs: Vital Signs Temperature 97.0 F L 10/26/19 06:00 Pulse Rate 74 10/26/19 06:00 Respiratory Rate 18 10/26/19 06:00 Blood Pressure 131/86 10/26/19 06:00 O2 Sat by Pulse Oximetry (%) 94 L 10/26/19 06:00 Constitutional: Yes: No Distress HENT: Yes: Atraumatic Neck: Yes: Supple Cardiovascular: Yes: Pulse Irregular Respiratory: Yes: Rhonchi Gastrointestinal: Yes: Normal Bowel Sounds Neurological: Yes: Alert, Oriented Labs: INR, PTT INR 1.06 (0.83-1.09) 10/25/19 23:40 Problem List - Problems (1) Hypertension Assessment/Plan: on meds monitor cardio consult Code(s): I10 - ESSENTIAL (PRIMARY) HYPERTENSION Qualifiers: Hypertension type: essential hypertension Qualified Code(s): I10 - Essential (primary) hypertension (2) CKD (chronic kidney disease) Assessment/Plan: monitor renal onboard Code(s): N18.9 - CHRONIC KIDNEY DISEASE, UNSPECIFIED (3) Flutter-fibrillation Assessment/Plan: on meds monitor Code(s): I48.91 - UNSPECIFIED ATRIAL FIBRILLATION; I48.92 - UNSPECIFIED ATRIAL FLUTTER Assessment/Plan Active Medications Generic Name Dose Route Start Last Admin Trade Name Freq PRN Reason Stop Dose Admin Diltiazem HCl 120 mg 10/26/19 10:00 Cardizem Cd - PO DAILY [facility] Furosemide 40 mg 10/26/19 10:00 Lasix - PO DAILY [facility] Heparin Sodium (Porcine) 1,000 unit 10/25/19 21:58 Heparin - IVPUSH PRN PRN Heparin Heparin Sodium (Porcine) 5,000 unit 10/25/19 22:04 Heparin - IVPUSH PRN PRN Heparin Heparin Sodium (Porcine) 25, 500 mls @ 16 mls/hr 10/25/19 22:00 10/26/19 01:15 000 unit/ Sodium Chloride IV 800 unit/hr TITR IMELDA 16 mls/hr Administration Protocol 800 UNIT/HR Isosorbide Mononitrate 60 mg 10/26/19 10:00 Imdur - PO DAILY IMELDA Nifedipine 10 mg 10/26/19 04:00 10/26/19 04:15 Procardia Capsule - PO Not Given Q6H [facility] Laboratory Tests 10/25/19 10/25/19 10/25/19 15:40 15:40 15:40 WBC 7.5 RBC 4.21 Hgb 12.9 Hct 38.6 MCV 91.6 MCH 30.7 MCHC 33.5 RDW 15.3 Plt Count 132 L MPV 8.9 Absolute Neuts (auto) 6.0 Neutrophils % 81.1 Lymphocytes % 8.4 D Monocytes % 8.0 Eosinophils % 1.7 Basophils % 0.8 Nucleated RBC % 0 PT with INR 12.40 INR 1.05 PTT (Actin FS) Sodium 145 Potassium 4.3 Chloride 108 H Carbon Dioxide 30 Anion Gap 7 L BUN 41.2 H Creatinine 1.7 H Est GFR (CKD-EPI)AfAm 31.54 Est GFR (CKD-EPI)NonAf 27.22 Random Glucose 112 H Calcium 9.8 Total Bilirubin 0.9 AST 31 ALT 41 Alkaline Phosphatase 109 Creatine Kinase 99 Troponin I < 0.02 Total Protein 6.3 L Albumin 4.0 Urine Color Urine Appearance Urine pH Ur Specific [place] Urine Protein Urine Glucose (UA) Urine Ketones Urine Blood Urine Nitrite Urine Bilirubin Urine Urobilinogen Ur Leukocyte Esterase Urine WBC (Auto) Urine RBC (Auto) Urine Casts (Auto) U Epithel Cells (Auto) Urine Bacteria (Auto) 10/25/19 10/25/19 15:55 23:40 WBC RBC Hgb Hct MCV MCH MCHC RDW Plt Count MPV Absolute Neuts (auto) Neutrophils % Lymphocytes % Monocytes % Eosinophils % Basophils % Nucleated RBC % PT with INR 12.50 INR 1.06 PTT (Actin FS) 34.0 Sodium Potassium Chloride Carbon Dioxide Anion Gap BUN Creatinine Est GFR (CKD-EPI)AfAm Est GFR (CKD-EPI)NonAf Random Glucose Calcium Total Bilirubin AST ALT Alkaline Phosphatase Creatine Kinase Troponin I Total Protein Albumin Urine Color Yellow Urine Appearance Clear Urine pH 7.5 Ur Specific [place] 1.012 Urine Protein 3+ H Urine Glucose (UA) Negative Urine Ketones Negative Urine Blood Negative Urine Nitrite Negative Urine Bilirubin Negative Urine Urobilinogen 0.2 Ur Leukocyte Esterase Trace Urine WBC (Auto) 31 Urine RBC (Auto) 5 Urine Casts (Auto) 1 U Epithel Cells (Auto) 8 Urine Bacteria (Auto) [address] mcgregor
[2019-10-26 07:26] LABS: BASO % 0.9 % (0-2.0); EOS % 2.4 % (0-4.5); HEMATOCRIT 34.1 % (32.4-45.2); HEMOGLOBIN 11.6 GM/dL (10.7-15.3); MCH 30.5 pg (25.7-33.7); MCHC 34.1 g/dl (32.0-36.0); MEAN CELL VOLUME 89.6 fl (80-96); MEAN PLT VOLUME 8.7 fl (7.5-11.1); MONO % 8.6 % (3.8-10.2); NEUT % 77.1 % (42.8-82.8); PLATELET COUNT 126 K/MM3 (134-434); RBC 3.81 M/mm3 (3.60-5.2); RDW 14.9 % (11.6-15.6); WHITE BLOOD COUNT 6.1 K/mm3 (4.0-10.0)
[2019-10-26 08:05] LABS: ALBUMIN 3.3 g/dl (3.4-5.0); BILIRUBIN,TOTAL 0.7 mg/dL (0.2-1); BLOOD UREA NITROGEN 37.9 mg/dL (7-18); CALCIUM 9.1 mg/dL (8.5-10.1); CREATININE 1.3 mg/dL (0.55-1.3); MAGNESIUM 2.1 mg/dL (1.8-2.4); PHOSPHOROUS 3.5 mg/dL (2.5-4.9); TOT PROT 5.3 g/dl (6.4-8.2)
[2019-10-26 08:12] LABS: POTASSIUM 2.9 mmol/L (3.5-5.1)
[2019-10-26] MEDS ORDERED: PT OWN MED DRAWER 7, Y5N ONE (09:07)
--- NOTE | 2019-10-26 09:44 | EKG ---
Test Reason : Blood Pressure : / mmHG Vent. Rate : 101 BPM Atrial Rate : 394 BPM P-R Int : 000 ms QRS Dur : 066 ms QT Int : 310 ms P-R-T Axes : 093 -39 058 degrees QTc Int : 401 ms ATRIAL FLUTTER WITH VARIABLE A-V BLOCK WITH PREMATURE VENTRICULAR OR ABERRANTLY CONDUCTED COMPLEXES LEFT AXIS DEVIATION PULMONARY DISEASE PATTERN SEPTAL INFARCT , AGE UNDETERMINED ABNORMAL ECG WHEN COMPARED WITH ECG OF 21-FEB-2010 22:36, SIGNIFICANT CHANGES HAVE OCCURRED Confirmed by BRE RAMIREZ MD ([id number]) on 10/26/2019 9:44:31 AM Referred By: Confirmed By:BRE RAMIREZ MD
[2019-10-26] MEDS: ISOSORBIDE MONONITRATE 60 MG TAB.SR.24H (FP) PO SCH (10:09)
[2019-10-26] MEDS: FUROSEMIDE 40 MG TABLET (FP) PO SCH (10:09)
--- NOTE | 2019-10-26 12:05 | CON.CARD ---
Cardiology Consult (text) - Consultation Consultation Note: cc: htn hpi: 84 f hx htn, ckd, sent to er by renal md for htn and blurred vision. In ER BP very elevated and pt found to be in afib. No cp sob palps dizzy loc pnd orthopnea. Chronic le edema stable. Sees dr mcgregor for cardio. pmh: per hpi psh: abd surgery for adhesions social: no tob fam: no premature cad, scd ros: per hpi; all others nl meds: Current Medications Generic Name Dose Route Start Last Admin Trade Name Freq PRN Reason Stop Dose Admin Diltiazem HCl 120 mg 10/26/19 10:00 10/26/19 10:09 Cardizem Cd - PO 120 mg DAILY IMLEDA Administration Furosemide 40 mg 10/26/19 10:00 10/26/19 10:09 Lasix - PO 40 mg DAILY IMELDA Administration Heparin Sodium (Porcine) 1,000 unit 10/25/19 21:58 Heparin - IVPUSH PRN PRN Heparin Heparin Sodium (Porcine) 5,000 unit 10/25/19 22:04 Heparin - IVPUSH PRN PRN Heparin Heparin Sodium (Porcine) 25, 500 mls @ 16 mls/hr 10/25/19 22:00 10/26/19 01:15 000 unit/ Sodium Chloride IV 800 unit/hr TITR IMELDA 16 mls/hr Administration Protocol 800 UNIT/HR Isosorbide Mononitrate 60 mg 10/26/19 10:00 10/26/19 10:09 Imdur - PO 60 mg DAILY IMELDA Administration pe: Vital Signs Period Temp Pulse Resp BP Sys/Jack Pulse Ox Last 24 Hr 97.0 F-98.1 F 74-103 17-25 80-211/48-124 92-99 nad no jvd irreg s1s2 no mrg cta bl nl eff aao3 trace le edema bl, no c/c abd nt nd pos bs no jaundice diaphoresis pos dp pt no carotid bruits Laboratory Last Values WBC 6.1 K/mm3 (4.0-10.0) 10/26/19 06:46 RBC 3.81 M/mm3 (3.60-5.2) 10/26/19 06:46 Hgb 11.6 GM/dL (10.7-15.3) 10/26/19 06:46 Hct 34.1 % (32.4-45.2) 10/26/19 06:46 MCV 89.6 fl (80-96) 10/26/19 06:46 MCH 30.5 pg (25.7-33.7) 10/26/19 06:46 MCHC 34.1 g/dl (32.0-36.0) 10/26/19 06:46 RDW 14.9 % (11.6-15.6) 10/26/19 06:46 Plt Count 126 K/MM3 (134-434) L 10/26/19 06:46 MPV 8.7 fl (7.5-11.1) 10/26/19 06:46 Absolute Neuts (auto) 4.7 K/mm3 (1.5-8.0) 10/26/19 06:46 Neutrophils % 77.1 % (42.8-82.8) 10/26/19 06:46 Lymphocytes % 11.0 % (8-40) D 10/26/19 06:46 Monocytes % 8.6 % (3.8-10.2) 10/26/19 06:46 Eosinophils % 2.4 % (0-4.5) 10/26/19 06:46 Basophils % 0.9 % (0-2.0) 10/26/19 06:46 Nucleated RBC % 0 % (0-0) 10/26/19 06:46 PT with INR 12.50 SEC (9.7-13.0) 10/25/19 23:40 INR 1.06 (0.83-1.09) 10/25/19 23:40 PTT (Actin FS) 57.5 SECONDS (25.2-36.5) H 10/26/19 06:46 Sodium 147 mmol/L (136-145) H 10/26/19 06:46 Potassium 2.9 mmol/L (3.5-5.1) L* 10/26/19 06:46 Chloride 110 mmol/L (98-107) H 10/26/19 06:46 Carbon Dioxide 29 mmol/L (21-32) 10/26/19 06:46 Anion Gap 8 MMOL/L (8-16) 10/26/19 06:46 BUN 37.9 mg/dL (7-18) H 10/26/19 06:46 Creatinine 1.3 mg/dL (0.55-1.3) 10/26/19 06:46 Est GFR (CKD-EPI)AfAm 43.63 10/26/19 06:46 Est GFR (CKD-EPI)NonAf 37.64 10/26/19 06:46 Random Glucose 99 mg/dL (74-106) 10/26/19 06:46 Calcium 9.1 mg/dL (8.5-10.1) 10/26/19 06:46 Phosphorus 3.5 mg/dL (2.5-4.9) 10/26/19 06:46 Magnesium 2.1 mg/dL (1.8-2.4) 10/26/19 06:46 Total Bilirubin 0.7 mg/dL (0.2-1) 10/26/19 06:46 AST 28 U/L (15-37) 10/26/19 06:46 ALT 34 U/L (13-61) 10/26/19 06:46 Alkaline Phosphatase 88 U/L (45-117) 10/26/19 06:46 Creatine Kinase 100 U/L (26-192) 10/26/19 06:46 Troponin I < 0.02 ng/ml (0.00-0.05) 10/25/19 15:40 Total Protein 5.3 g/dl (6.4-8.2) L 10/26/19 06:46 Albumin 3.3 g/dl (3.4-5.0) L 10/26/19 06:46 TSH 0.72 uIU/ml (0.358-3.74) 10/26/19 06:46 Urine Color Yellow 10/25/19 15:55 Urine Appearance Clear 10/25/19 15:55 Urine pH 7.5 (5.0-8.0) 10/25/19 15:55 Ur Specific [place] 1.012 (1.010-1.035) 10/25/19 15:55 Urine Protein 3+ (NEGATIVE) H 10/25/19 15:55 Urine Glucose (UA) Negative (NEGATIVE) 10/25/19 15:55 Urine Ketones Negative (NEGATIVE) 10/25/19 15:55 Urine Blood Negative (NEGATIVE) 10/25/19 15:55 Urine Nitrite Negative (NEGATIVE) 10/25/19 15:55 Urine Bilirubin Negative (NEGATIVE) 10/25/19 15:55 Urine Urobilinogen 0.2 mg/dL (0.2-1.0) 10/25/19 15:55 Ur Leukocyte Esterase Trace (NEGATIVE) 10/25/19 15:55 Urine WBC (Auto) 31 /uL (0-25.8) 10/25/19 15:55 Urine RBC (Auto) 5 /uL (0-23.9) 10/25/19 15:55 Urine Casts (Auto) 1 /uL (0-3.1) 10/25/19 15:55 U Epithel Cells (Auto) 8 /uL (0-25.1) 10/25/19 15:55 Urine Bacteria (Auto) 122 /uL (0-1359) 10/25/19 15:55 tele:afib,rate ok ecg: afib/aflutter, rate ok, no ischemic changes cxr: clear a/p: 84 f hx htn, ckd, sent to er by renal md for htn and blurred vision. htn: -po meds resumed, bp improved, monitor for now -echo pending ckd: -cr near baseline, renal following afib/aflutter: -new onset -rate controlled on dilt, cont tele -chadsvasc warrants AC, continue le edema/venous insuff: -cont po lasix
[2019-10-26] MEDS ORDERED: POTASSIUM CHLORIDE ORAL LIQUID 20 MEQ/15 ML PO ONE (12:36)
[2019-10-26] MEDS: KCL 10 MEQ IVPB 10 MEQ/100 ML INFUS.BAG IVPB SCH ×3 (13:37→15:30)
[2019-10-26] MEDS ORDERED: POTASSIUM CHLORIDE TABS 10 MEQ TABLET.ER (FP) PO ONE (15:36)
--- NOTE | 2019-10-26 15:36 | CONSULT ---
Consult Consult Specialty:: Nephrology Reason for Consultation:: CKD - History of Present Illness Chief Complaint: sent in for HTN History of Present Illness: Pt is an 84 year old female with pmhx of ckd, chf, htn and asthma who I sent in to the hospital from the office yesterday for dizziness and uncontrolled HTN. SHe presented with frequent falls and diplopia at times. She was found to have elevated bp. She was found in a-flutter in the er. She was admitted for treatment. - History Source History Provided By: Patient, Medical Record - Past Medical History Cardio/Vascular: Yes: HTN Pulmonary: Yes: Asthma Gastrointestinal: Yes: Constipation, Hiatal Hernia, Irritable Bowel Disease Renal/: Yes: Hematuria ...LMP: 10/25/19 ...: No Musculoskeletal: Yes: Osteoarthritis Endocrine: Yes: Other (thyroid multinodular goiter by US 05/23) - Past Surgical History Past Surgical History: Yes: Appendectomy, Hernia Repair (Left Inguinal with Mesh.), Hysterectomy (LESVIA/BSO with Lysis of Adhesions), Tonsillectomy - Alcohol/Substance Use Hx Alcohol Use: No History of Substance Use: reports: None - Smoking History Smoking history: Unknown if ever smoked Have you smoked in the past 12 months: No Aproximately how many cigarettes per day: 0 - Social History Usual Living Arrangement: Alone (Never ) ADL: Independent 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 History of Recent Travel: No Home Medications - Allergies Allergies/Adverse Reactions: Allergies Allergy/AdvReac Type Severity Reaction Status Date / Time adhesive tape Allergy Intermediate Rash Verified 10/25/19 15:37 aspirin Allergy Verified 10/25/19 15:37 cephalexin monohydrate Allergy Verified 10/25/19 15:37 [From Keflex] Penicillins Allergy Verified 10/25/19 15:37 - Home Medications Home Medications: Ambulatory Orders Albuterol Sulfate Inhaler - [Ventolin HFA Inhaler -] 1 - 2 inh PO QID 01/18/17 Potassium Chloride 20 meq PO DAILY 01/18/17 Theophylline Anhydrous [Yony-24] 300 mg PO DAILY 01/18/17 Hydralazine HCl 25 mg PO BID 10/01/17 Miscellaneous Medical Supply [Outpatient Order] 1 each ASDIR #1 misc 10/08/17 Diltiazem Cd [Cardizem Cd -] 120 mg PO DAILY 10/25/19 Furosemide [Lasix -] 40 mg PO DAILY 10/25/19 Isosorbide Mononitrate [Isosorbide Mononitrate ER] 60 mg PO DAILY 10/25/19 Losartan Potassium [Cozaar] 100 mg PO DAILY 10/25/19 Family Medical History Family History: Denies Review of Systems - Review of Systems Constitutional: reports: Malaise, Weakness Eyes: reports: No Symptoms HENT: reports: No Symptoms Neck: reports: No Symptoms Cardiovascular: reports: No Symptoms Respiratory: reports: No Symptoms Gastrointestinal: reports: No Symptoms Genitourinary: reports: No Symptoms Musculoskeletal: reports: No Symptoms Integumentary: reports: No Symptoms Neurological: reports: No Symptoms Endocrine: reports: No Symptoms Hematology/Lymphatic: reports: No Symptoms Psychiatric: reports: No Symptoms Physical Exam Vital Signs: Vital Signs Temperature 97.4 F L 10/26/19 14:15 Pulse Rate 75 10/26/19 14:15 Respiratory Rate 16 10/26/19 14:15 Blood Pressure 141/85 10/26/19 14:15 O2 Sat by Pulse Oximetry (%) 94 L 10/26/19 10:00 Constitutional: Yes: Calm Eyes: Yes: Conjunctiva Clear HENT: Yes: Atraumatic Cardiovascular: Yes: S1, S2 Respiratory: Yes: CTA Bilaterally Gastrointestinal: Yes: Soft Renal/: Yes: WNL Musculoskeletal: Yes: WNL Edema: Yes Edema: LLE: 1+, RLE: 1+ Neurological: Yes: Oriented Psychiatric: Yes: Oriented Labs: CBC, BMP 10/26/19 06:46 10/26/19 06:46 Imaging - Results Cat Scan: Report Reviewed Problem List - Problems (1) DONN (acute kidney injury) Code(s): N17.9 - ACUTE KIDNEY FAILURE, UNSPECIFIED (2) CKD (chronic kidney disease) Code(s): N18.9 - CHRONIC KIDNEY DISEASE, UNSPECIFIED (3) Flutter-fibrillation Code(s): I48.91 - UNSPECIFIED ATRIAL FIBRILLATION; I48.92 - UNSPECIFIED ATRIAL FLUTTER (4) Hypertensive emergency Code(s): I16.1 - HYPERTENSIVE EMERGENCY Assessment/Plan Current Medications Generic Name Dose Route Start Last Admin Trade Name Freq PRN Reason Stop Dose Admin Diltiazem HCl 120 mg 10/26/19 10:00 10/26/19 10:09 Cardizem Cd - PO 120 mg DAILY IMELDA Administration Furosemide 40 mg 10/26/19 10:00 10/26/19 10:09 Lasix - PO 40 mg DAILY IMELDA Administration Heparin Sodium (Porcine) 1,000 unit 10/25/19 21:58 Heparin - IVPUSH PRN PRN Heparin Heparin Sodium (Porcine) 5,000 unit 10/25/19 22:04 Heparin - IVPUSH PRN PRN Heparin Heparin Sodium (Porcine) 25, 500 mls @ 16 mls/hr 10/25/19 22:00 10/26/19 01:15 000 unit/ Sodium Chloride IV 800 unit/hr TITR IMELDA 16 mls/hr Administration Protocol 800 UNIT/HR Isosorbide Mononitrate 60 mg 10/26/19 10:00 10/26/19 10:09 Imdur - PO 60 mg DAILY IMELDA Administration Laboratory Tests 10/25/19 10/25/19 10/25/19 15:40 15:55 19:15 Sodium 145 Potassium 4.3 Creatinine 1.7 H Phosphorus Magnesium Urine Protein 3+ H Urine Blood Negative COVID-19 (ELENA) Not detected 10/26/19 06:46 Sodium 147 H Potassium 2.9 L* Creatinine 1.3 Phosphorus 3.5 Magnesium 2.1 Urine Protein Urine Blood COVID-19 (ELENA) Impression 1. CKD 2. DONN 3. HTN 4. a-flutter 5. asthma 6. non compliance with meds 7. 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
--- NOTE | 2019-10-26 16:31 | ECHO ---
Name: VERA KHALIF Exam:Adult Echocardiogram Study Date: 10/26/2019 11:41 AM Age: 84 yrs MMode/2D Measurements & Calculations IVSd: 1.0 cm Ao root diam: 3.1 cm LVIDd: 4.2 cm LA dimension: 5.3 cm LVIDs: 2.9 cm ACS: 1.9 cm LVPWd: 1.5 cm LVPWs: 1.4 cm EDV(Teich): 80.1 ml ESV(Teich): 32.2 ml LVOT diam: 2.0 cm LAV (MOD-bp): 118.0 ml RV S Dimitrios: 9.0 cm/sec Doppler Measurements & Calculations MV V2 max: 141.2 cm/sec Ao V2 max: 126.3 cm/sec MV max P.0 mmHg Ao max P.4 mmHg MV V2 mean: 85.9 cm/sec AI P1/2t: 576.5 msec MV mean P.6 mmHg MANNY(V,D): 2.3 cm2 MV V2 VTI: 22.4 cm AI max dimitrios: 469.4 cm/sec LV V1 max P.8 mmHg AI max P.2 mmHg LV V1 max: 97.2 cm/sec AI dec slope: 238.5 cm/sec2 MR max dimitrios: 598.1 cm/sec TR max dimitrios: 342.4 cm/sec MR max P.3 mmHg TR max P.9 mmHg PA V2 max: 87.1 cm/sec Med Peak E' Dimitrios: 3.2 cm/sec PA max P.1 mmHg Lat Peak E' Dimitrios: 8.4 cm/sec Procedure A complete two-dimensional transthoracic echocardiogram was performed (2D, M-mode, Doppler and color flow Doppler). Left Ventricle The left ventricular size, thickness and function are normal. Ejection Fraction = 60-65%. The left ve ntricular wall motion is normal. Right Ventricle The right ventricle is normal in size and function. Atria The left atrium is severely dilated. The right atrium is mildly dilated. Mitral Valve There is moderate mitral regurgitation. The mitral regurgitant jet is eccentrically directed. Tricuspid Valve There is trace tricuspid regurgitation. Right ventricular systolic pressure is normal. Aortic Valve No hemodynamically significant valvular aortic stenosis. Mild to moderate aortic regurgitation. Pulmonic Valve There is no pulmonic valvular regurgitation. Great Vessels The aortic root is normal size. Pericardium/Pleura There is no pericardial effusion. Interpretation Summary The left ventricular size, thickness and function are normal The right ventricle is normal in size and function. The left atrium is severely dilated. The right atrium is mildly dilated. There is moderate mitral regurgitation. The mitral regurgitant jet is eccentrically directed. There is trace tricuspid regurgitation. Mild to moderate aortic regurgitation. MD Gregorio Blanchard 10/26/2019 04:30 PM
[2019-10-26] MEDS: THEOPHYLLINE ANHYDROUS 100 MG CAP.ER.24H PO SCH (17:40)
[2019-10-26] MEDS ORDERED: KCL 10 MEQ IVPB 10 MEQ/100 ML INFUS.BAG IVPB SCH (18:00)
[2019-10-27] MEDS: HEPARIN - 25,000 UNIT in SODIUM CHLORIDE 495 ML IV SCH (00:46)
[2019-10-27] MEDS: ACETAMINOPHEN 325 MG TABLET (FP) PO ONE ×2 (06:07→06:15)
--- NOTE | 2019-10-27 06:15 | PN ---
Progress Note, Physician Chief Complaint: feels "miserable" Denies CP. 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, eccentric CHF Non smoker - Current Medication List Current Medications: Active Medications Diltiazem HCl (Cardizem Cd -) 120 mg PO DAILY [facility] Last Admin: 10/26/19 10:09 Dose: 120 mg Documented by: Furosemide (Lasix -) 40 mg PO DAILY [facility] Last Admin: 10/26/19 10:09 Dose: 40 mg Documented by: Heparin Sodium (Porcine) (Heparin -) 1,000 unit IVPUSH PRN PRN PRN Reason: Heparin Heparin Sodium (Porcine) (Heparin -) 5,000 unit IVPUSH PRN PRN PRN Reason: Heparin Heparin Sodium (Porcine) 25, (000 unit/ Sodium Chloride) 500 mls @ 16 mls/hr IV TITR [facility]; Protocol Last Admin: 10/27/19 00:46 Dose: 800 unit/hr, 16 mls/hr Documented by: Isosorbide Mononitrate (Imdur -) 60 mg PO DAILY [facility] Last Admin: 10/26/19 10:09 Dose: 60 mg Documented by: Potassium Chloride (K-Dur -) 20 meq PO DAILY [facility] Theophylline (Yony-24) 300 mg PO DAILY [facility] Last Admin: 10/26/19 17:40 Dose: 300 mg Documented by: - Objective Vital Signs: Vital Signs Temperature 97.8 F 10/27/19 04:00 Pulse Rate 77 10/27/19 04:00 Respiratory Rate 18 10/27/19 04:00 Blood Pressure 157/100 10/27/19 04:00 O2 Sat by Pulse Oximetry (%) 94 L 10/27/19 04:00 Constitutional: Yes: No Distress Eyes: Yes: Conjunctiva Clear Cardiovascular: Yes: Bradycardia, Pulse Irregular Respiratory: Yes: Other (decreased breath sounds bases) Edema: Yes Edema: LLE: 1+, RLE: 1+ Neurological: Yes: Alert Labs: CBC, BMP 10/26/19 06:46 10/26/19 06:46 INR, PTT INR 1.06 (0.83-1.09) 10/25/19 23:40 - ....Imaging EKG: Image Reviewed Assessment/Plan IMP/PLAN: htn: -Would resume either losartan OR Hydralazine for optimization BP and afterload reduction -echo reviewed (moderate MR, but with eccentric jet which may underestimate the degree of MR). ckd: -cr near baseline, renal following afib/aflutter: -new onset -rate controlled on dilt, cont tele -chadsvasc warrants AC, continue. Would switch to Eliquis 2.5mg BID le edema/venous insuff: -cont po lasix Moderate to severe eccentric MR: patient referred for MV clip evaluation as o utpatient. Has appt with Dr. Ronquillo at [place]
[2019-10-27 07:10] LABS: HEMATOCRIT 32.9 % (32.4-45.2); HEMOGLOBIN 11.1 GM/dL (10.7-15.3); MCH 30.4 pg (25.7-33.7); MCHC 33.8 g/dl (32.0-36.0); MEAN CELL VOLUME 89.9 fl (80-96); MEAN PLT VOLUME 8.4 fl (7.5-11.1); PLATELET COUNT 120 K/MM3 (134-434); RBC 3.66 M/mm3 (3.60-5.2); RDW 15.2 % (11.6-15.6); WHITE BLOOD COUNT 6.2 K/mm3 (4.0-10.0)
[2019-10-27 07:44] LABS: ALBUMIN 3.2 g/dl (3.4-5.0); BLOOD UREA NITROGEN 37.8 mg/dL (7-18); MAGNESIUM 2.1 mg/dL (1.8-2.4); POTASSIUM 3.5 mmol/L (3.5-5.1)
[2019-10-27 07:47] LABS: BILIRUBIN,TOTAL 0.8 mg/dL (0.2-1); CREATININE 1.3 mg/dL (0.55-1.3); TOT PROT 5.1 g/dl (6.4-8.2)
[2019-10-27] MEDS ORDERED: PT OWN MED DRAWER 7, Y5N ONE (09:52)
[2019-10-27] MEDS: POTASSIUM CHLORIDE TABS 10 MEQ TABLET.ER (FP) PO SCH (09:54)
[2019-10-27] MEDS: FUROSEMIDE 40 MG TABLET (FP) PO SCH (09:54)
[2019-10-27] MEDS: ISOSORBIDE MONONITRATE 60 MG TAB.SR.24H (FP) PO SCH (09:54)
[2019-10-27] MEDS: THEOPHYLLINE ANHYDROUS 100 MG CAP.ER.24H PO SCH (09:54)
[2019-10-27] MEDS: LOSARTAN POTASSIUM 50 MG TABLET (FP) PO SCH (11:43)
--- NOTE | 2019-10-27 15:08 | PN ---
Progress Note, Physician History of Present Illness: Pt seen and examined at bedside. She complains of edema. - Current Medication List Current Medications: Active Medications Diltiazem HCl (Cardizem Cd -) 120 mg PO DAILY [facility] Last Admin: 10/27/19 09:54 Dose: 120 mg Documented by: Furosemide (Lasix -) 40 mg PO DAILY [facility] Last Admin: 10/27/19 09:54 Dose: 40 mg Documented by: Heparin Sodium (Porcine) (Heparin -) 1,000 unit IVPUSH PRN PRN PRN Reason: Heparin Heparin Sodium (Porcine) (Heparin -) 5,000 unit IVPUSH PRN PRN PRN Reason: Heparin Last Admin: 10/27/19 08:25 Dose: 5,000 unit Documented by: Heparin Sodium (Porcine) 25, (000 unit/ Sodium Chloride) 500 mls @ 16 mls/hr IV TITR [facility]; Protocol Last Titration: 10/27/19 08:25 Dose: 950 unit/hr, 19 mls/hr Documented by: Isosorbide Mononitrate (Imdur -) 60 mg PO DAILY [facility] Last Admin: 10/27/19 09:54 Dose: 60 mg Documented by: Losartan Potassium (Cozaar -) 100 mg PO DAILY [facility] Last Admin: 10/27/19 11:43 Dose: 100 mg Documented by: Potassium Chloride (K-Dur -) 20 meq PO DAILY [facility] Last Admin: 10/27/19 09:54 Dose: 20 meq Documented by: Theophylline (Yony-24) 300 mg PO DAILY [facility] Last Admin: 10/27/19 09:54 Dose: 300 mg Documented by: - Objective Vital Signs: Vital Signs Temperature 97.8 F 10/27/19 14:15 Pulse Rate 92 H 10/27/19 14:15 Respiratory Rate 18 10/27/19 14:15 Blood Pressure 149/89 10/27/19 14:15 O2 Sat by Pulse Oximetry (%) 94 L 10/27/19 09:02 Constitutional: Yes: Calm Eyes: Yes: Conjunctiva Clear HENT: Yes: Atraumatic Neck: Yes: Supple Cardiovascular: Yes: Pulse Irregular, S1, S2 Respiratory: Yes: CTA Bilaterally, On Nasal O2 Gastrointestinal: Yes: Soft Genitourinary: Yes: WNL Musculoskeletal: Yes: WNL Edema: Yes Edema: LLE: 2+, RLE: 2+ Neurological: Yes: Oriented Psychiatric: Yes: Oriented Labs: CBC, BMP 10/27/19 06:40 10/27/19 06:40 INR, PTT INR 1.06 (0.83-1.09) 10/25/19 23:40 Problem List - Problems (1) DONN (acute kidney injury) Code(s): N17.9 - ACUTE KIDNEY FAILURE, UNSPECIFIED (2) CKD (chronic kidney disease) Code(s): N18.9 - CHRONIC KIDNEY DISEASE, UNSPECIFIED (3) Flutter-fibrillation Code(s): I48.91 - UNSPECIFIED ATRIAL FIBRILLATION; I48.92 - UNSPECIFIED ATRIAL FLUTTER (4) Hypertensive emergency Code(s): I16.1 - HYPERTENSIVE EMERGENCY Assessment/Plan Current Medications Generic Name Dose Route Start Last Admin Trade Name Freq PRN Reason Stop Dose Admin Diltiazem HCl 120 mg 10/26/19 10:00 10/27/19 09:54 Cardizem Cd - PO 120 mg DAILY IMELDA Administration Furosemide 40 mg 10/26/19 10:00 10/27/19 09:54 Lasix - PO 40 mg DAILY IMELDA Administration Heparin Sodium (Porcine) 1,000 unit 10/25/19 21:58 Heparin - IVPUSH PRN PRN Heparin Heparin Sodium (Porcine) 5,000 unit 10/25/19 22:04 10/27/19 08:25 Heparin - IVPUSH 5,000 unit PRN PRN Administration Heparin Heparin Sodium (Porcine) 25, 500 mls @ 16 mls/hr 10/25/19 22:00 10/27/19 08:25 000 unit/ Sodium Chloride IV 950 unit/hr TITR IMELDA 19 mls/hr Titration Protocol 800 UNIT/HR Isosorbide Mononitrate 60 mg 10/26/19 10:00 10/27/19 09:54 Imdur - PO 60 mg DAILY IMELDA Administration Losartan Potassium 100 mg 10/27/19 10:30 10/27/19 11:43 Cozaar - PO 100 mg DAILY IMELDA Administration Potassium Chloride 20 meq 10/27/19 10:00 10/27/19 09:54 K-Dur - PO 20 meq DAILY IMELDA Administration Theophylline 300 mg 10/26/19 15:45 10/27/19 09:54 Yony-24 PO 300 mg DAILY IMELDA Administration Impression 1. CKD 2. DONN 3. HTN 4. a-flutter 5. asthma 6. non compliance with meds 7. hypokalemia Plan - restart losartan 100 mg - restart lasix - monitor potassium levels - cardio input appreciated - monitor bp - ac per cardio
--- NOTE | 2019-10-27 16:39 | PN ---
Progress Note, Physician - Current Medication List Current Medications: Active Medications Diltiazem HCl (Cardizem Cd -) 120 mg PO DAILY [facility] Last Admin: 10/27/19 09:54 Dose: 120 mg Documented by: Furosemide (Lasix -) 40 mg PO DAILY [facility] Last Admin: 10/27/19 09:54 Dose: 40 mg Documented by: Heparin Sodium (Porcine) (Heparin -) 1,000 unit IVPUSH PRN PRN PRN Reason: Heparin Heparin Sodium (Porcine) (Heparin -) 5,000 unit IVPUSH PRN PRN PRN Reason: Heparin Last Admin: 10/27/19 08:25 Dose: 5,000 unit Documented by: Heparin Sodium (Porcine) 25, (000 unit/ Sodium Chloride) 500 mls @ 16 mls/hr IV TITR [facility]; Protocol Last Titration: 10/27/19 08:25 Dose: 950 unit/hr, 19 mls/hr Documented by: Isosorbide Mononitrate (Imdur -) 60 mg PO DAILY [facility] Last Admin: 10/27/19 09:54 Dose: 60 mg Documented by: Losartan Potassium (Cozaar -) 100 mg PO DAILY [facility] Last Admin: 10/27/19 11:43 Dose: 100 mg Documented by: Potassium Chloride (K-Dur -) 20 meq PO DAILY [facility] Last Admin: 10/27/19 09:54 Dose: 20 meq Documented by: Theophylline (Yony-24) 300 mg PO DAILY [facility] Last Admin: 10/27/19 09:54 Dose: 300 mg Documented by: - Objective Vital Signs: Vital Signs Temperature 97.8 F 10/27/19 14:15 Pulse Rate 92 H 10/27/19 14:15 Respiratory Rate 18 10/27/19 14:15 Blood Pressure 149/89 10/27/19 14:15 O2 Sat by Pulse Oximetry (%) 94 L 10/27/19 09:02 Constitutional: Yes: Anxious HENT: Yes: Atraumatic Neck: Yes: Supple Cardiovascular: Yes: Pulse Irregular Respiratory: Yes: CTA Bilaterally Gastrointestinal: Yes: Normal Bowel Sounds Extremities: Yes: WNL Neurological: Yes: Alert, Oriented Labs: CBC, BMP 10/27/19 06:40 10/27/19 06:40 INR, PTT INR 1.06 (0.83-1.09) 10/25/19 23:40 Problem List - Problems (1) Hypertension Assessment/Plan: on meds monitor cardio consult Code(s): I10 - ESSENTIAL (PRIMARY) HYPERTENSION Qualifiers: Hypertension type: essential hypertension Qualified Code(s): I10 - Essential (primary) hypertension (2) CKD (chronic kidney disease) Assessment/Plan: monitor renal onboard Code(s): N18.9 - CHRONIC KIDNEY DISEASE, UNSPECIFIED (3) Flutter-fibrillation Assessment/Plan: on meds monitor Code(s): I48.91 - UNSPECIFIED ATRIAL FIBRILLATION; I48.92 - UNSPECIFIED ATRIAL FLUTTER (4) Goiter Assessment/Plan: tsh wnl will get endocrine consult Code(s): E04.9 - NONTOXIC GOITER, UNSPECIFIED
[2019-10-28 06:27] LABS: HEMATOCRIT 33.1 % (32.4-45.2); HEMOGLOBIN 11.1 GM/dL (10.7-15.3); MCH 30.5 pg (25.7-33.7); MCHC 33.5 g/dl (32.0-36.0); MEAN CELL VOLUME 90.9 fl (80-96); MEAN PLT VOLUME 8.7 fl (7.5-11.1); PLATELET COUNT 117 K/MM3 (134-434); RBC 3.65 M/mm3 (3.60-5.2); RDW 15.2 % (11.6-15.6); WHITE BLOOD COUNT 6.2 K/mm3 (4.0-10.0)
[2019-10-28] MEDS ORDERED: PT OWN MED DRAWER 7, Y5N ONE (08:57)
[2019-10-28] MEDS: POTASSIUM CHLORIDE TABS 10 MEQ TABLET.ER (FP) PO SCH (09:17)
[2019-10-28] MEDS: FUROSEMIDE 40 MG TABLET (FP) PO SCH (09:17)
[2019-10-28] MEDS: ISOSORBIDE MONONITRATE 60 MG TAB.SR.24H (FP) PO SCH (09:17)
[2019-10-28] MEDS: LOSARTAN POTASSIUM 50 MG TABLET (FP) PO SCH (09:17)
[2019-10-28] MEDS: THEOPHYLLINE ANHYDROUS 100 MG CAP.ER.24H PO SCH (09:18)
--- NOTE | 2019-10-28 11:24 | PN ---
Progress Note (short form) - Note Progress Note: s: no cp sob palps dizzy Non smoker Current Medications Generic Name Dose Route Start Last Admin Trade Name Freq PRN Reason Stop Dose Admin Diltiazem HCl 240 mg 10/28/19 11:21 Cardizem Cd - PO DAILY IMELDA Diltiazem HCl 120 mg 10/28/19 12:00 Cardizem Cd - PO 10/28/19 12:01 ONCE ONE Furosemide 40 mg 10/26/19 10:00 10/28/19 09:17 Lasix - PO 40 mg DAILY IMELDA Administration Heparin Sodium (Porcine) 1,000 unit 10/25/19 21:58 Heparin - IVPUSH PRN PRN Heparin Heparin Sodium (Porcine) 5,000 unit 10/25/19 22:04 10/27/19 08:25 Heparin - IVPUSH 5,000 unit PRN PRN Administration Heparin Heparin Sodium (Porcine) 25, 500 mls @ 16 mls/hr 10/25/19 22:00 10/28/19 07:20 000 unit/ Sodium Chloride IV 800 unit/hr TITR IMELDA 16 mls/hr Titration Protocol 800 UNIT/HR Isosorbide Mononitrate 60 mg 10/26/19 10:00 10/28/19 09:17 Imdur - PO 60 mg DAILY IMELDA Administration Losartan Potassium 100 mg 10/27/19 10:30 10/28/19 09:17 Cozaar - PO 100 mg DAILY IMELDA Administration Potassium Chloride 20 meq 10/27/19 10:00 10/28/19 09:17 K-Dur - PO 20 meq DAILY IMELDA Administration Theophylline 300 mg 10/26/19 15:45 10/28/19 09:18 Yony-24 PO 300 mg DAILY IMELDA Administration Vital Signs Period Temp Pulse Resp BP Sys/Jack Pulse Ox Last 24 Hr 97.8 F-98.3 F 72-92 18-20 149-189/89-132 94-94 Constitutional: Yes: No Distress Eyes: Yes: Conjunctiva Clear Cardiovascular: Yes: rr, Pulse Irregular, s1s2 Respiratory: Yes: Other (decreased breath sounds bases) Edema: no Neurological: Yes: Alert no jaundice diaphoresis Labs: CBC, BMP 10/28/19 05:36 10/27/19 06:40 - ....Imaging EKG: Image Reviewed tele: afib, rate ok IMP/PLAN: htn: -cont current meds, will increase dilt for better bp control ckd: -cr near baseline, renal following afib/aflutter: -new onset -rate controlled on dilt, cont tele -chadsvasc warrants AC, continue. Would switch to Eliquis 2.5mg BID le edema/venous insuff: -cont po lasix 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 Has appt with Dr. Ronquillo at [place]
[2019-10-28] MEDS: HEPARIN - 25,000 UNIT in SODIUM CHLORIDE 495 ML IV SCH (11:53)
--- NOTE | 2019-10-28 14:09 | PN ---
Progress Note (short form) - Note Progress Note: covering dr haider Problems 1. CKD 2. DONN 3. HTN 4. a-flutter 5. asthma 6. non compliance with meds 7. hypokalemia Meds Active Medications Diltiazem HCl (Cardizem Cd -) 240 mg PO DAILY [facility] Furosemide (Lasix -) 40 mg PO DAILY [facility] Last Admin: 10/28/19 09:17 Dose: 40 mg Documented by: Heparin Sodium (Porcine) (Heparin -) 1,000 unit IVPUSH PRN PRN PRN Reason: Heparin Heparin Sodium (Porcine) (Heparin -) 5,000 unit IVPUSH PRN PRN PRN Reason: Heparin Last Admin: 10/27/19 08:25 Dose: 5,000 unit Documented by: Heparin Sodium (Porcine) 25, (000 unit/ Sodium Chloride) 500 mls @ 16 mls/hr IV TITR [facility]; Protocol Last Admin: 10/28/19 11:53 Dose: Not Given Documented by: Isosorbide Mononitrate (Imdur -) 60 mg PO DAILY [facility] Last Admin: 10/28/19 09:17 Dose: 60 mg Documented by: Losartan Potassium (Cozaar -) 100 mg PO DAILY [facility] Last Admin: 10/28/19 09:17 Dose: 100 mg Documented by: Potassium Chloride (K-Dur -) 20 meq PO DAILY [facility] Last Admin: 10/28/19 09:17 Dose: 20 meq Documented by: Theophylline (Yony-24) 300 mg PO DAILY [facility] Last Admin: 10/28/19 09:18 Dose: 300 mg Documented by: Last Vital Signs Temp Pulse Resp BP Pulse Ox 98 F 95 H 20 142/100 94 L 10/28/19 13:00 10/28/19 13:00 10/28/19 13:00 10/28/19 13:00 10/28/19 13:00 alert in nad Lungs clear Heart irreg Abd soft nontender Ext mild edema CBC, BMP 10/28/19 05:36 10/27/19 06:40 IMP- CKD Prerenal acute on chronic azotemia Hypernatremia s/p Hypokalemia- resolved HTN poorly controlled Plan- continue hydration
--- NOTE | 2019-10-28 17:28 | PN ---
Progress Note, Physician History of Present Illness: stable - Current Medication List Current Medications: Active Medications Diltiazem HCl (Cardizem Cd -) 240 mg PO DAILY [facility] Furosemide (Lasix -) 40 mg PO DAILY [facility] Last Admin: 10/28/19 09:17 Dose: 40 mg Documented by: Heparin Sodium (Porcine) (Heparin -) 1,000 unit IVPUSH PRN PRN PRN Reason: Heparin Heparin Sodium (Porcine) (Heparin -) 5,000 unit IVPUSH PRN PRN PRN Reason: Heparin Last Admin: 10/27/19 08:25 Dose: 5,000 unit Documented by: Heparin Sodium (Porcine) 25, (000 unit/ Sodium Chloride) 500 mls @ 16 mls/hr IV TITR [facility]; Protocol Last Admin: 10/28/19 11:53 Dose: Not Given Documented by: Isosorbide Mononitrate (Imdur -) 60 mg PO DAILY [facility] Last Admin: 10/28/19 09:17 Dose: 60 mg Documented by: Losartan Potassium (Cozaar -) 100 mg PO DAILY [facility] Last Admin: 10/28/19 09:17 Dose: 100 mg Documented by: Potassium Chloride (K-Dur -) 20 meq PO DAILY [facility] Last Admin: 10/28/19 09:17 Dose: 20 meq Documented by: Theophylline (Yony-24) 300 mg PO DAILY [facility] Last Admin: 10/28/19 09:18 Dose: 300 mg Documented by: - Objective Vital Signs: Vital Signs Temperature 98 F 10/28/19 13:00 Pulse Rate 95 H 10/28/19 13:00 Respiratory Rate 20 10/28/19 13:00 Blood Pressure 142/100 10/28/19 13:00 O2 Sat by Pulse Oximetry (%) 94 L 10/28/19 13:00 Constitutional: Yes: No Distress HENT: Yes: Atraumatic Neck: Yes: Supple Cardiovascular: Yes: Pulse Irregular Respiratory: Yes: CTA Bilaterally Gastrointestinal: Yes: Normal Bowel Sounds Extremities: Yes: WNL Neurological: Yes: Alert, Oriented Labs: CBC, BMP 10/28/19 05:36 10/27/19 06:40 INR, PTT INR 1.06 (0.83-1.09) 10/25/19 23:40 Problem List - Problems (1) Hypertension Assessment/Plan: ON MEDS MONITOR CARDIO ON BOARD Code(s): I10 - ESSENTIAL (PRIMARY) HYPERTENSION Qualifiers: Hypertension type: essential hypertension Qualified Code(s): I10 - Essential (primary) hypertension (2) CKD (chronic kidney disease) Assessment/Plan: monitor renal onboard Code(s): N18.9 - CHRONIC KIDNEY DISEASE, UNSPECIFIED (3) Flutter-fibrillation Assessment/Plan: on meds monitor Code(s): I48.91 - UNSPECIFIED ATRIAL FIBRILLATION; I48.92 - UNSPECIFIED ATRIAL FLUTTER (4) Goiter Assessment/Plan: tsh wnl will get endocrine consult Code(s): E04.9 - NONTOXIC GOITER, UNSPECIFIED
[2019-10-29 07:21] LABS: ALBUMIN 3.3 g/dl (3.4-5.0); BILIRUBIN,TOTAL 0.6 mg/dL (0.2-1); CALCIUM 9.3 mg/dL (8.5-10.1); CREATININE 1.5 mg/dL (0.55-1.3); POTASSIUM 3.4 mmol/L (3.5-5.1)
[2019-10-29 07:29] LABS: BASO % 0.7 % (0-2.0); EOS % 3.9 % (0-4.5); HEMATOCRIT 34.2 % (32.4-45.2); HEMOGLOBIN 11.4 GM/dL (10.7-15.3); LYMPH % 12.8 % (8-40); MCH 30.5 pg (25.7-33.7); MCHC 33.4 g/dl (32.0-36.0); MEAN CELL VOLUME 91.3 fl (80-96); MEAN PLT VOLUME 8.8 fl (7.5-11.1); NEUT % 73.6 % (42.8-82.8); PLATELET COUNT 117 K/MM3 (134-434); RBC 3.75 M/mm3 (3.60-5.2); RDW 15.3 % (11.6-15.6); WHITE BLOOD COUNT 6.1 K/mm3 (4.0-10.0)
[2019-10-29 07:40] LABS: TOT PROT 5.3 g/dl (6.4-8.2)
[2019-10-29] MEDS ORDERED: PT OWN MED DRAWER 7, Y5N ONE (09:19)
[2019-10-29] MEDS: POTASSIUM CHLORIDE TABS 10 MEQ TABLET.ER (FP) PO SCH (10:11)
[2019-10-29] MEDS: ISOSORBIDE MONONITRATE 60 MG TAB.SR.24H (FP) PO SCH (10:11)
[2019-10-29] MEDS: LOSARTAN POTASSIUM 50 MG TABLET (FP) PO SCH (10:11)
[2019-10-29] MEDS: FUROSEMIDE 40 MG TABLET (FP) PO SCH (10:12)
[2019-10-29] MEDS: THEOPHYLLINE ANHYDROUS 100 MG CAP.ER.24H PO SCH (10:13)
--- NOTE | 2019-10-29 10:58 | PN ---
Progress Note (short form) - Note Progress Note: s: no cp sob palps dizzy Non smoker Current Medications Generic Name Dose Route Start Last Admin Trade Name Mamadou PRN Reason Stop Dose Admin Apixaban 2.5 mg 10/29/19 22:00 Eliquis - PO BID IMELDA Diltiazem HCl 240 mg 10/29/19 10:00 10/29/19 10:11 Cardizem Cd - PO 240 mg DAILY IMELDA Administration Furosemide 40 mg 10/26/19 10:00 10/29/19 10:12 Lasix - PO 40 mg DAILY IMELDA Administration Isosorbide Mononitrate 60 mg 10/26/19 10:00 10/29/19 10:11 Imdur - PO 60 mg DAILY IMELDA Administration Losartan Potassium 100 mg 10/27/19 10:30 10/29/19 10:11 Cozaar - PO 100 mg DAILY IMELDA Administration Potassium Chloride 20 meq 10/27/19 10:00 10/29/19 10:11 K-Dur - PO 20 meq DAILY IMELDA Administration Theophylline 300 mg 10/26/19 15:45 10/29/19 10:13 Yony-24 PO 300 mg DAILY IMELDA Administration Vital Signs Period Temp Pulse Resp BP Sys/Jack Pulse Ox Last 24 Hr 97.5 F-98.9 F 61-95 20-20 142-185/90-104 94-98 Constitutional: Yes: No Distress Eyes: Yes: Conjunctiva Clear Cardiovascular: Yes: rr, Pulse Irregular, s1s2 Respiratory: cta bl nl eff Edema: no Neurological: Yes: Alert no jaundice diaphoresis aao3 Labs: CBC, BMP 10/29/19 05:35 10/29/19 05:35 - ....Imaging EKG: Image Reviewed tele: afib, rate ok IMP/PLAN: htn: -cont current meds, monitor for now ckd: -cr near baseline, renal following afib/aflutter: -new onset -rate controlled on dilt -chadsvasc warrants AC, will dc hep gtt and start Eliquis 2.5mg BID le edema/venous insuff: -cont po lasix 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 Has appt with Dr. Ronquillo at [place]
--- NOTE | 2019-10-29 18:21 | PN ---
Progress Note (short form) - Note Progress Note: covering dr haider Problems 1. CKD 2. DONN 3. HTN 4. a-flutter 5. asthma 6. non compliance with meds 7. hypokalemia Active Medications Apixaban (Eliquis -) 2.5 mg PO BID [facility] Diltiazem HCl (Cardizem Cd -) 240 mg PO DAILY [facility] Last Admin: 10/29/19 10:11 Dose: 240 mg Documented by: Furosemide (Lasix -) 40 mg PO DAILY [facility] Last Admin: 10/29/19 10:12 Dose: 40 mg Documented by: Isosorbide Mononitrate (Imdur -) 60 mg PO DAILY [facility] Last Admin: 10/29/19 10:11 Dose: 60 mg Documented by: Losartan Potassium (Cozaar -) 100 mg PO DAILY [facility] Last Admin: 10/29/19 10:11 Dose: 100 mg Documented by: Polyethylene Glycol (Miralax (For Daily Use) -) 17 gm PO BID [facility] Potassium Chloride (K-Dur -) 20 meq PO DAILY [facility] Last Admin: 10/29/19 10:11 Dose: 20 meq Documented by: Theophylline (Yony-24) 300 mg PO DAILY [facility] Last Admin: 10/29/19 10:13 Dose: 300 mg Documented by: Last Vital Signs Temp Pulse Resp BP Pulse Ox 98.4 F 85 20 139/80 97 10/29/19 14:00 10/29/19 14:00 10/29/19 14:00 10/29/19 14:00 10/29/19 09:50 alert in nad Lungs clear Heart irreg Abd soft nontender Ext mild edema CBC, BMP 10/29/19 05:35 10/29/19 05:35 CBC, BMP 10/28/19 05:36 10/27/19 06:40 IMP- CKD Prerenal acute on chronic azotemia Hypernatremia s/p Hypokalemia- resolving HTN poorly controlled Plan- continue hydration
[2019-10-29] MEDS: POLYETHYLENE GLYCOL 3350 119 GM BTL PO SCH (21:12)
[2019-10-29] MEDS: APIXABAN 2.5 MG TABLET PO SCH (21:13)
--- NOTE | 2019-10-29 21:25 | PN ---
Progress Note, Physician History of Present Illness: No new complaints - Current Medication List Current Medications: Active Medications Apixaban (Eliquis -) 2.5 mg PO BID [facility] Last Admin: 10/29/19 21:13 Dose: 2.5 mg Documented by: Diltiazem HCl (Cardizem Cd -) 240 mg PO DAILY [facility] Last Admin: 10/29/19 10:11 Dose: 240 mg Documented by: Furosemide (Lasix -) 40 mg PO DAILY [facility] Last Admin: 10/29/19 10:12 Dose: 40 mg Documented by: Isosorbide Mononitrate (Imdur -) 60 mg PO DAILY [facility] Last Admin: 10/29/19 10:11 Dose: 60 mg Documented by: Losartan Potassium (Cozaar -) 100 mg PO DAILY [facility] Last Admin: 10/29/19 10:11 Dose: 100 mg Documented by: Polyethylene Glycol (Miralax (For Daily Use) -) 17 gm PO BID [facility] Last Admin: 10/29/19 21:12 Dose: 17 gm Documented by: Potassium Chloride (K-Dur -) 20 meq PO DAILY [facility] Last Admin: 10/29/19 10:11 Dose: 20 meq Documented by: Theophylline (Yony-24) 300 mg PO DAILY [facility] Last Admin: 10/29/19 10:13 Dose: 300 mg Documented by: - Objective Vital Signs: Vital Signs Temperature 98.1 F 10/29/19 18:00 Pulse Rate 78 10/29/19 18:00 Respiratory Rate 20 10/29/19 18:00 Blood Pressure 152/84 10/29/19 18:00 O2 Sat by Pulse Oximetry (%) 95 10/29/19 19:57 Neck: Yes: WNL, Supple Cardiovascular: Yes: WNL, Regular Rate and Rhythm Respiratory: Yes: WNL, Regular, CTA Bilaterally Gastrointestinal: Yes: WNL, Normal Bowel Sounds, Soft Labs: CBC, BMP 10/29/19 05:35 10/29/19 05:35 INR, PTT INR 1.06 (0.83-1.09) 10/25/19 23:40 Problem List - Problems (1) Hypertensive emergency Assessment/Plan: BP still fluctuating As per cardio Code(s): I16.1 - HYPERTENSIVE EMERGENCY (2) CKD (chronic kidney disease) Code(s): N18.9 - CHRONIC KIDNEY DISEASE, UNSPECIFIED (3) Asthma Code(s): J45.909 - UNSPECIFIED ASTHMA, UNCOMPLICATED
[2019-10-30] MEDS ORDERED: ISOSORBIDE MONONITRATE 60 MG TAB.SR.24H (FP) PO ONE ×2 (05:18→12:00)
[2019-10-30] MEDS ORDERED: NITROGLYCERIN SUBLINGUAL 1/150 0.4 MG TAB SL ONE (06:55)
[2019-10-30] MEDS ORDERED: LABETALOL HCL 5 MG/1 ML (100MG/20 ML VIAL) IVPUSH ONE (07:05)
--- NOTE | 2019-10-30 07:05 | RAPID ---
Physical Examination Vital Signs: Vital Signs Temperature 97.8 F 10/30/19 05:21 Pulse Rate 70 10/30/19 05:21 Respiratory Rate 18 10/30/19 05:21 Blood Pressure 161/101 H 10/30/19 05:21 O2 Sat by Pulse Oximetry (%) 98 10/30/19 05:21 Labs: CBC, BMP 10/29/19 05:35 10/29/19 05:35 Rapid Response - Rapid Response Assessment: Rapid response called at 6:45 on 10/30/2019 on [address]. Rapid response team arrived at bedside immediately. RN reports patient experiencing new onset chest pain. Patient reports pain that is substernal, crushing, 10/10, non radiating. Non reproducible with palpation. BP 185/111 HR 78 RR 16 O2 Sat 94% on 2L NC Patient resting in bed; in mild distress. AOx3 Lungs CTAB CV irregular rate, regular rhythm; normal S1, S2; no mrg Abd - soft ntnd Ext - no calf tenderness Stat EKG with no acute changes compared to EKG on admission. Plan: Trops ordered. Nitro SL administered. Recommend Labetalol 10 mg IV push if persistent hypertensive urgency.
[2019-10-30 07:50] LABS: HEMOGLOBIN 10.7 GM/dL (10.7-15.3); MCH 30.5 pg (25.7-33.7); MCHC 33.5 g/dl (32.0-36.0); MEAN CELL VOLUME 91.1 fl (80-96); PLATELET COUNT 113 K/MM3 (134-434); RBC 3.52 M/mm3 (3.60-5.2); RDW 15.4 % (11.6-15.6)
[2019-10-30] MEDS: LOSARTAN POTASSIUM 50 MG TABLET (FP) PO SCH (09:15)
[2019-10-30] MEDS: APIXABAN 2.5 MG TABLET PO SCH ×2 (09:15→22:22)
[2019-10-30] MEDS: ISOSORBIDE MONONITRATE 60 MG TAB.SR.24H (FP) PO SCH (09:15)
[2019-10-30] MEDS: FUROSEMIDE 40 MG TABLET (FP) PO SCH (09:15)
[2019-10-30] MEDS: POTASSIUM CHLORIDE TABS 10 MEQ TABLET.ER (FP) PO SCH (09:15)
[2019-10-30] MEDS: POLYETHYLENE GLYCOL 3350 119 GM BTL PO SCH ×2 (09:16→22:22)
[2019-10-30] MEDS: THEOPHYLLINE ANHYDROUS 100 MG CAP.ER.24H PO SCH (09:16)
--- NOTE | 2019-10-30 11:30 | PN ---
Progress Note (short form) - Note Progress Note: s: no sob palps dizzy. overnight had episode of chest pressure with very high bp. bp improved with labetalol and cp resolved, feels well now Non smoker Current Medications Generic Name Dose Route Start Last Admin Trade Name Mamadou PRN Reason Stop Dose Admin Apixaban 2.5 mg 10/29/19 22:00 10/30/19 09:15 Eliquis - PO 2.5 mg BID IMELDA Administration Diltiazem HCl 360 mg 10/30/19 10:00 10/30/19 09:59 Cardizem Cd - PO Not Given DAILY IMELDA Diltiazem HCl 120 mg 10/30/19 11:26 Cardizem Cd - PO 10/30/19 11:27 ONCE ONE Furosemide 40 mg 10/26/19 10:00 10/30/19 09:15 Lasix - PO 40 mg DAILY IMELDA Administration Isosorbide Mononitrate 90 mg 10/31/19 10:00 Imdur - PO DAILY IMELDA Losartan Potassium 100 mg 10/27/19 10:30 10/30/19 09:15 Cozaar - PO 100 mg DAILY IMELDA Administration Polyethylene Glycol 17 gm 10/29/19 22:00 10/30/19 09:16 Miralax (For Daily Use) - PO 17 gm BID IMELDA Administration Potassium Chloride 20 meq 10/27/19 10:00 10/30/19 09:15 K-Dur - PO 20 meq DAILY IMELDA Administration Theophylline 300 mg 10/26/19 15:45 10/30/19 09:16 Yony-24 PO 300 mg DAILY IMELDA Administration Vital Signs Period Temp Pulse Resp BP Sys/Jack Pulse Ox Last 24 Hr 97.3 F-98.4 F 68-87 18-20 139-175/80-105 89-98 Constitutional: Yes: No Distress Eyes: Yes: Conjunctiva Clear Cardiovascular: Yes: rr, Pulse Irregular, s1s2 Respiratory: cta bl nl eff Edema: no Neurological: Yes: Alert no jaundice diaphoresis aao3 Labs: CBC, BMP 10/30/19 06:38 10/29/19 05:35 - ....Imaging EKG: Image Reviewed tele: afib, rate ok IMP/PLAN: htn: -improved but still up at times, will cont current meds but increase dilt to 360 and imdur to 90. 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 Has appt with Dr. Ronquillo at [place] cp: -episode of cp earlier this AM when her bp was very elevated. ECG and trop unchanged. After bp was controlled her cp resolved. Likely cp was due to very high bp, will cont to titrate meds as above. Monitor for recurrence.
--- NOTE | 2019-10-30 15:54 | PN ---
Progress Note, Physician History of Present Illness: Pt seen and examined at bedside. She is awake and alert. Rapid response was called earlier. - Current Medication List Current Medications: Active Medications Apixaban (Eliquis -) 2.5 mg PO BID [facility] Last Admin: 10/30/19 09:15 Dose: 2.5 mg Documented by: Diltiazem HCl (Cardizem Cd -) 360 mg PO DAILY [facility] Last Admin: 10/30/19 09:59 Dose: Not Given Documented by: Furosemide (Lasix -) 40 mg PO DAILY [facility] Last Admin: 10/30/19 09:15 Dose: 40 mg Documented by: Isosorbide Mononitrate (Imdur -) 90 mg PO DAILY [facility] Losartan Potassium (Cozaar -) 100 mg PO DAILY [facility] Last Admin: 10/30/19 09:15 Dose: 100 mg Documented by: Polyethylene Glycol (Miralax (For Daily Use) -) 17 gm PO BID [facility] Last Admin: 10/30/19 09:16 Dose: 17 gm Documented by: Potassium Chloride (K-Dur -) 20 meq PO DAILY [facility] Last Admin: 10/30/19 09:15 Dose: 20 meq Documented by: Theophylline (Yony-24) 300 mg PO DAILY [facility] Last Admin: 10/30/19 09:16 Dose: 300 mg Documented by: - Objective Vital Signs: Vital Signs Temperature 98 F 10/30/19 13:29 Pulse Rate 73 10/30/19 13:29 Respiratory Rate 18 10/30/19 13:29 Blood Pressure 123/69 10/30/19 13:29 O2 Sat by Pulse Oximetry (%) 97 10/30/19 13:29 Constitutional: Yes: Calm Eyes: Yes: Conjunctiva Clear HENT: Yes: Atraumatic Cardiovascular: Yes: S1, S2 Respiratory: Yes: CTA Bilaterally Gastrointestinal: Yes: Normal Bowel Sounds, Soft Genitourinary: Yes: WNL Musculoskeletal: Yes: WNL Edema: Yes Edema: LLE: 1+, RLE: 1+ Neurological: Yes: Oriented Psychiatric: Yes: Oriented Labs: CBC, BMP 10/30/19 06:38 10/29/19 05:35 INR, PTT INR 1.06 (0.83-1.09) 10/25/19 23:40 Problem List - Problems (1) DONN (acute kidney injury) Code(s): N17.9 - ACUTE KIDNEY FAILURE, UNSPECIFIED (2) CKD (chronic kidney disease) Code(s): N18.9 - CHRONIC KIDNEY DISEASE, UNSPECIFIED (3) Flutter-fibrillation Code(s): I48.91 - UNSPECIFIED ATRIAL FIBRILLATION; I48.92 - UNSPECIFIED ATRIAL FLUTTER (4) Hypertensive emergency Code(s): I16.1 - HYPERTENSIVE EMERGENCY Assessment/Plan Current Medications Generic Name Dose Route Start Last Admin Trade Name Mamadou PRN Reason Stop Dose Admin Apixaban 2.5 mg 10/29/19 22:00 10/30/19 09:15 Eliquis - PO 2.5 mg BID IMELDA Administration Diltiazem HCl 360 mg 10/30/19 10:00 10/30/19 09:59 Cardizem Cd - PO Not Given DAILY IMELDA Furosemide 40 mg 10/26/19 10:00 10/30/19 09:15 Lasix - PO 40 mg DAILY IMELDA Administration Isosorbide Mononitrate 90 mg 10/31/19 10:00 Imdur - PO DAILY IMELDA Losartan Potassium 100 mg 10/27/19 10:30 10/30/19 09:15 Cozaar - PO 100 mg DAILY IMELDA Administration Polyethylene Glycol 17 gm 10/29/19 22:00 10/30/19 09:16 Miralax (For Daily Use) - PO 17 gm BID IMELDA Administration Potassium Chloride 20 meq 10/27/19 10:00 10/30/19 09:15 K-Dur - PO 20 meq DAILY IMELDA Administration Theophylline 300 mg 10/26/19 15:45 10/30/19 09:16 Yony-24 PO 300 mg DAILY IMELDA Administration Impression 1. CKD 2. DONN 3. HTN 4. a-flutter 5. asthma 6. non compliance with meds 7. hypokalemia Plan - cont current meds - replace potassium - bp meds adjusted, discussed with cardio - cont to monitor lytes - volume status improving - cont with lasix
--- NOTE | 2019-10-30 16:45 | PN ---
Progress Note, Physician History of Present Illness: events noted doing well - Current Medication List Current Medications: Active Medications Apixaban (Eliquis -) 2.5 mg PO BID [facility] Last Admin: 10/30/19 09:15 Dose: 2.5 mg Documented by: Diltiazem HCl (Cardizem Cd -) 360 mg PO DAILY [facility] Last Admin: 10/30/19 09:59 Dose: Not Given Documented by: Furosemide (Lasix -) 40 mg PO DAILY [facility] Last Admin: 10/30/19 09:15 Dose: 40 mg Documented by: Isosorbide Mononitrate (Imdur -) 90 mg PO DAILY [facility] Losartan Potassium (Cozaar -) 100 mg PO DAILY [facility] Last Admin: 10/30/19 09:15 Dose: 100 mg Documented by: Polyethylene Glycol (Miralax (For Daily Use) -) 17 gm PO BID [facility] Last Admin: 10/30/19 09:16 Dose: 17 gm Documented by: Potassium Chloride (K-Dur -) 20 meq PO DAILY [facility] Last Admin: 10/30/19 09:15 Dose: 20 meq Documented by: Potassium Chloride (K-Dur -) 20 meq PO ONCE ONE Stop: 10/30/19 22:01 Theophylline (Yony-24) 300 mg PO DAILY [facility] Last Admin: 10/30/19 09:16 Dose: 300 mg Documented by: - Objective Vital Signs: Vital Signs Temperature 98 F 10/30/19 13:29 Pulse Rate 73 10/30/19 13:29 Respiratory Rate 18 10/30/19 13:29 Blood Pressure 123/69 10/30/19 13:29 O2 Sat by Pulse Oximetry (%) 97 10/30/19 13:29 Constitutional: Yes: No Distress HENT: Yes: Atraumatic Neck: Yes: Supple Cardiovascular: Yes: Pulse Irregular Respiratory: Yes: CTA Bilaterally Gastrointestinal: Yes: Normal Bowel Sounds Extremities: Yes: WNL Edema: No Neurological: Yes: Alert, Oriented Labs: CBC, BMP 10/30/19 06:38 10/29/19 05:35 INR, PTT INR 1.06 (0.83-1.09) 10/25/19 23:40 Problem List - Problems (1) Hypertension Assessment/Plan: had rapid response bp was high was given labetolol Code(s): I10 - ESSENTIAL (PRIMARY) HYPERTENSION Qualifiers: Hypertension type: essential hypertension Qualified Code(s): I10 - E ssential (primary) hypertension (2) CKD (chronic kidney disease) Assessment/Plan: monitor renal onboard Code(s): N18.9 - CHRONIC KIDNEY DISEASE, UNSPECIFIED (3) Flutter-fibrillation Assessment/Plan: on meds monitor Code(s): I48.91 - UNSPECIFIED ATRIAL FIBRILLATION; I48.92 - UNSPECIFIED ATRIAL FLUTTER (4) Goiter Assessment/Plan: tsh wnl will get endocrine consult Code(s): E04.9 - NONTOXIC GOITER, UNSPECIFIED
--- NOTE | 2019-10-30 18:13 | EKG ---
Test Reason : Blood Pressure : / mmHG Vent. Rate : 089 BPM Atrial Rate : 079 BPM P-R Int : 000 ms QRS Dur : 078 ms QT Int : 358 ms P-R-T Axes : 000 -45 -03 degrees QTc Int : 435 ms ATRIAL FIBRILLATION LEFT AXIS DEVIATION LOW VOLTAGE QRS SEPTAL INFARCT (CITED ON OR BEFORE 25-OCT-2019) ABNORMAL ECG WHEN COMPARED WITH ECG OF 25-OCT-2019 15:33, NO SIGNIFICANT CHANGE WAS FOUND Confirmed by KAITLIN ORDONEZ MD ([id number]) on 10/30/2019 6:13:14 PM Referred By: Confirmed By:KAITLIN ORDONEZ MD
[2019-10-30] MEDS ORDERED: POTASSIUM CHLORIDE TABS 20 MEQ TABLET.ER (FP) PO ONE (22:00)
[2019-10-30 23:49] VITALS: BMI 22.8
[2019-10-31 07:25] LABS: HEMATOCRIT 31.5 % (32.4-45.2); HEMOGLOBIN 10.5 GM/dL (10.7-15.3); MCH 30.3 pg (25.7-33.7); MCHC 33.2 g/dl (32.0-36.0); MEAN CELL VOLUME 91.4 fl (80-96); MEAN PLT VOLUME 8.9 fl (7.5-11.1); PLATELET COUNT 111 K/MM3 (134-434); RBC 3.44 M/mm3 (3.60-5.2); RDW 15.2 % (11.6-15.6); WHITE BLOOD COUNT 5.7 K/mm3 (4.0-10.0)
[2019-10-31 07:57] LABS: ALBUMIN 3.1 g/dl (3.4-5.0); BILIRUBIN,TOTAL 0.6 mg/dL (0.2-1); BLOOD UREA NITROGEN 30.7 mg/dL (7-18); CALCIUM 9.1 mg/dL (8.5-10.1); CREATININE 1.2 mg/dL (0.55-1.3); POTASSIUM 4.1 mmol/L (3.5-5.1); TOT PROT 5.2 g/dl (6.4-8.2)
[2019-10-31] MEDS: THEOPHYLLINE ANHYDROUS 100 MG CAP.ER.24H PO SCH (09:42)
[2019-10-31] MEDS: ISOSORBIDE MONONITRATE 30 MG TAB.SR.24H (FP) PO SCH (09:43)
[2019-10-31] MEDS: LOSARTAN POTASSIUM 50 MG TABLET (FP) PO SCH (09:43)
[2019-10-31] MEDS: FUROSEMIDE 40 MG TABLET (FP) PO SCH (09:43)
[2019-10-31] MEDS: POTASSIUM CHLORIDE TABS 10 MEQ TABLET.ER (FP) PO SCH (09:43)
[2019-10-31] MEDS: APIXABAN 2.5 MG TABLET PO SCH ×2 (09:43→21:54)
[2019-10-31] MEDS: POLYETHYLENE GLYCOL 3350 119 GM BTL PO SCH ×2 (09:44→21:54)
--- NOTE | 2019-10-31 12:08 | PN ---
Progress Note (short form) - Note Progress Note: cc: s: no sob palps dizzy. feels better today. Current Medications Generic Name Dose Route Start Last Admin Trade Name Mamadou PRN Reason Stop Dose Admin Apixaban 2.5 mg 10/29/19 22:00 10/31/19 09:43 Eliquis - PO 2.5 mg BID IMELDA Administration Diltiazem HCl 360 mg 10/30/19 10:00 10/31/19 09:43 Cardizem Cd - PO 360 mg DAILY IMELDA Administration Furosemide 40 mg 10/26/19 10:00 10/31/19 09:43 Lasix - PO 40 mg DAILY IMELDA Administration Isosorbide Mononitrate 90 mg 10/31/19 10:00 10/31/19 09:43 Imdur - PO 90 mg DAILY IMELDA Administration Losartan Potassium 100 mg 10/27/19 10:30 10/31/19 09:43 Cozaar - PO 100 mg DAILY IMELDA Administration Polyethylene Glycol 17 gm 10/29/19 22:00 10/31/19 09:44 Miralax (For Daily Use) - PO 17 gm BID IMELDA Administration Potassium Chloride 20 meq 10/27/19 10:00 10/31/19 09:43 K-Dur - PO 20 meq DAILY IMELDA Administration Theophylline 300 mg 10/26/19 15:45 10/31/19 09:42 Yony-24 PO 300 mg DAILY IMELDA Administration Vital Signs Period Temp Pulse Resp BP Sys/Jack Pulse Ox Last 24 Hr 97.8 F-98.4 F 53-78 16-20 120-147/69-95 93-99 Constitutional: Yes: No Distress Eyes: Yes: Conjunctiva Clear Cardiovascular: Yes: rr, Pulse Irregular, s1s2 Respiratory: cta bl nl eff Edema: no Neurological: Yes: Alert no jaundice diaphoresis aao3 EKG: Image Reviewed tele: afib, rate ok, enrico overnight IMP/PLAN: htn: -improving - increased dilt to 360 and imdur to 90. 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 Has appt with Dr. Ronquillo at [place] cp: -episode of cp 10/29 when her bp was very elevated. ECG and trop unchanged. After bp was controlled her cp resolved. Likely cp was due to very high bp, will cont to titrate meds as above. Monitor for recurrence.
--- NOTE | 2019-10-31 12:20 | PN ---
Progress Note, Physician History of Present Illness: Pt seen and examine at bedside. She is awake and alert. She denies shortness of breath. - Current Medication List Current Medications: Active Medications Apixaban (Eliquis -) 2.5 mg PO BID [facility] Last Admin: 10/31/19 09:43 Dose: 2.5 mg Documented by: Diltiazem HCl (Cardizem Cd -) 360 mg PO DAILY [facility] Last Admin: 10/31/19 09:43 Dose: 360 mg Documented by: Furosemide (Lasix -) 40 mg PO DAILY [facility] Last Admin: 10/31/19 09:43 Dose: 40 mg Documented by: Isosorbide Mononitrate (Imdur -) 90 mg PO DAILY [facility] Last Admin: 10/31/19 09:43 Dose: 90 mg Documented by: Losartan Potassium (Cozaar -) 100 mg PO DAILY [facility] Last Admin: 10/31/19 09:43 Dose: 100 mg Documented by: Polyethylene Glycol (Miralax (For Daily Use) -) 17 gm PO BID [facility] Last Admin: 10/31/19 09:44 Dose: 17 gm Documented by: Potassium Chloride (K-Dur -) 20 meq PO DAILY [facility] Last Admin: 10/31/19 09:43 Dose: 20 meq Documented by: Theophylline (Yony-24) 300 mg PO DAILY [facility] Last Admin: 10/31/19 09:42 Dose: 300 mg Documented by: - Objective Vital Signs: Vital Signs Temperature 98 F 10/31/19 09:08 Pulse Rate 78 10/31/19 09:08 Respiratory Rate 16 10/31/19 09:08 Blood Pressure 147/91 10/31/19 09:08 O2 Sat by Pulse Oximetry (%) 94 L 10/31/19 09:08 Constitutional: Yes: Calm Eyes: Yes: Conjunctiva Clear HENT: Yes: Atraumatic Neck: Yes: Supple Cardiovascular: Yes: S1, S2 Respiratory: Yes: CTA Bilaterally Gastrointestinal: Yes: Soft Genitourinary: Yes: WNL Musculoskeletal: Yes: WNL Edema: Yes Edema: LLE: 1+, RLE: 1+ Neurological: Yes: Oriented Psychiatric: Yes: Oriented Labs: CBC, BMP 10/31/19 06:10 10/31/19 06:10 INR, PTT INR 1.06 (0.83-1.09) 10/25/19 23:40 Problem List - Problems (1) DONN (acute kidney injury) Code(s): N17.9 - ACUTE KIDNEY FAILURE, UNSPECIFIED (2) CKD (chronic kidney disease) Code(s): N18.9 - CHRONIC KIDNEY DISEASE, UNSPECIFIED (3) Flutter-fibrillation Code(s): I48.91 - UNSPECIFIED ATRIAL FIBRILLATION; I48.92 - UNSPECIFIED ATRIAL FLUTTER (4) Hypertensive emergency Code(s): I16.1 - HYPERTENSIVE EMERGENCY Assessment/Plan Current Medications Generic Name Dose Route Start Last Admin Trade Name Mamadou PRN Reason Stop Dose Admin Apixaban 2.5 mg 10/29/19 22:00 10/31/19 09:43 Eliquis - PO 2.5 mg BID IMELDA Administration Diltiazem HCl 360 mg 10/30/19 10:00 10/31/19 09:43 Cardizem Cd - PO 360 mg DAILY IMELDA Administration Furosemide 40 mg 10/26/19 10:00 10/31/19 09:43 Lasix - PO 40 mg DAILY IMELDA Administration Isosorbide Mononitrate 90 mg 10/31/19 10:00 10/31/19 09:43 Imdur - PO 90 mg DAILY IMELDA Administration Losartan Potassium 100 mg 10/27/19 10:30 10/31/19 09:43 Cozaar - PO 100 mg DAILY IMELDA Administration Polyethylene Glycol 17 gm 10/29/19 22:00 10/31/19 09:44 Miralax (For Daily Use) - PO 17 gm BID IMELDA Administration Potassium Chloride 20 meq 10/27/19 10:00 10/31/19 09:43 K-Dur - PO 20 meq DAILY IMELDA Administration Theophylline 300 mg 10/26/19 15:45 10/31/19 09:42 Yony-24 PO 300 mg DAILY IMELDA Administration Impression 1. CKD 2. DONN 3. HTN 4. a-flutter 5. asthma 6. non compliance with meds 7. hypokalemia Plan - cont lasix - monitor potassium - monitor bp - discussed with cardio - volume status improving
--- NOTE | 2019-10-31 17:32 | PN ---
Progress Note, Physician - Current Medication List Current Medications: Active Medications Apixaban (Eliquis -) 2.5 mg PO BID [facility] Last Admin: 10/31/19 09:43 Dose: 2.5 mg Documented by: Diltiazem HCl (Cardizem Cd -) 360 mg PO DAILY [facility] Last Admin: 10/31/19 09:43 Dose: 360 mg Documented by: Furosemide (Lasix -) 40 mg PO DAILY [facility] Last Admin: 10/31/19 09:43 Dose: 40 mg Documented by: Isosorbide Mononitrate (Imdur -) 90 mg PO DAILY [facility] Last Admin: 10/31/19 09:43 Dose: 90 mg Documented by: Losartan Potassium (Cozaar -) 100 mg PO DAILY [facility] Last Admin: 10/31/19 09:43 Dose: 100 mg Documented by: Polyethylene Glycol (Miralax (For Daily Use) -) 17 gm PO BID [facility] Last Admin: 10/31/19 09:44 Dose: 17 gm Documented by: Potassium Chloride (K-Dur -) 20 meq PO DAILY [facility] Last Admin: 10/31/19 09:43 Dose: 20 meq Documented by: Theophylline (Yony-24) 300 mg PO DAILY [facility] Last Admin: 10/31/19 09:42 Dose: 300 mg Documented by: - Objective Vital Signs: Vital Signs Temperature 97.8 F 10/31/19 14:00 Pulse Rate 66 10/31/19 14:00 Respiratory Rate 20 10/31/19 14:00 Blood Pressure 118/76 10/31/19 14:00 O2 Sat by Pulse Oximetry (%) 94 L 10/31/19 09:08 Constitutional: Yes: No Distress HENT: Yes: Atraumatic Neck: Yes: Supple Cardiovascular: Yes: Pulse Irregular Respiratory: Yes: CTA Bilaterally Gastrointestinal: Yes: Normal Bowel Sounds Extremities: Yes: WNL Edema: No Neurological: Yes: Alert, Oriented Labs: CBC, BMP 10/31/19 06:10 10/31/19 06:10 INR, PTT INR 1.06 (0.83-1.09) 10/25/19 23:40 Problem List - Problems (1) Hypertension Assessment/Plan: meds getting adjusted bp much better today Code(s): I10 - ESSENTIAL (PRIMARY) HYPERTENSION Qualifiers: Hypertension type: essential hypertension Qualified Code(s): I10 - Essential (primary) hypertension (2) CKD (chronic kidney disease) Assessment/Plan: monitor renal onboard Code(s): N18.9 - CHRONIC KIDNEY DISEASE, UNSPECIFIED (3) Flutter-fibrillation Assessment/Plan: on meds monitor Code(s): I48.91 - UNSPECIFIED ATRIAL FIBRILLATION; I48.92 - UNSPECIFIED ATRIAL FLUTTER (4) Goiter Assessment/Plan: tsh wnl will get endocrine consult Code(s): E04.9 - NONTOXIC GOITER, UNSPECIFIED
[2019-11-01] MEDS: FUROSEMIDE 40 MG TABLET (FP) PO SCH (09:23)
[2019-11-01] MEDS: POTASSIUM CHLORIDE TABS 10 MEQ TABLET.ER (FP) PO SCH (09:23)
[2019-11-01] MEDS: LOSARTAN POTASSIUM 50 MG TABLET (FP) PO SCH (09:23)
[2019-11-01] MEDS: APIXABAN 2.5 MG TABLET PO SCH ×2 (09:23→21:03)
[2019-11-01] MEDS: ISOSORBIDE MONONITRATE 30 MG TAB.SR.24H (FP) PO SCH (09:24)
[2019-11-01] MEDS ORDERED: PT OWN MED DRAWER 7, Y5N ONE (09:26)
[2019-11-01] MEDS: POLYETHYLENE GLYCOL 3350 119 GM BTL PO SCH ×2 (09:27→21:03)
[2019-11-01] MEDS: THEOPHYLLINE ANHYDROUS 100 MG CAP.ER.24H PO SCH (09:27)
--- NOTE | 2019-11-01 11:08 | PN ---
Progress Note, Physician History of Present Illness: Pt seen and examined at bedside. She is awake and appears comfortable. - Current Medication List Current Medications: Active Medications Apixaban (Eliquis -) 2.5 mg PO BID [facility] Last Admin: 11/01/19 09:23 Dose: 2.5 mg Documented by: Diltiazem HCl (Cardizem Cd -) 360 mg PO DAILY [facility] Last Admin: 11/01/19 09:23 Dose: 360 mg Documented by: Furosemide (Lasix -) 40 mg PO DAILY [facility] Last Admin: 11/01/19 09:23 Dose: 40 mg Documented by: Isosorbide Mononitrate (Imdur -) 90 mg PO DAILY [facility] Last Admin: 11/01/19 09:24 Dose: 90 mg Documented by: Losartan Potassium (Cozaar -) 100 mg PO DAILY [facility] Last Admin: 11/01/19 09:23 Dose: 100 mg Documented by: Polyethylene Glycol (Miralax (For Daily Use) -) 17 gm PO BID [facility] Last Admin: 11/01/19 09:27 Dose: 17 gm Documented by: Potassium Chloride (K-Dur -) 20 meq PO DAILY [facility] Last Admin: 11/01/19 09:23 Dose: 20 meq Documented by: Theophylline (Yony-24) 300 mg PO DAILY [facility] Last Admin: 11/01/19 09:27 Dose: 300 mg Documented by: - Objective Vital Signs: Vital Signs Temperature 97.3 F L 11/01/19 10:00 Pulse Rate 77 11/01/19 10:00 Respiratory Rate 18 11/01/19 10:00 Blood Pressure 152/91 11/01/19 10:00 O2 Sat by Pulse Oximetry (%) 96 11/01/19 02:00 Constitutional: Yes: Calm Eyes: Yes: Conjunctiva Clear HENT: Yes: Atraumatic Cardiovascular: Yes: S1, S2 Respiratory: Yes: CTA Bilaterally Gastrointestinal: Yes: Soft Genitourinary: Yes: WNL Musculoskeletal: Yes: WNL Edema: Yes Edema: LLE: Trace, RLE: Trace Neurological: Yes: Oriented Psychiatric: Yes: Oriented Labs: CBC, BMP 10/31/19 06:10 10/31/19 06:10 INR, PTT INR 1.06 (0.83-1.09) 10/25/19 23:40 Problem List - Problems (1) DONN (acute kidney injury) Code(s): N17.9 - ACUTE KIDNEY FAILURE, UNSPECIFIED (2) CKD (chronic kidney disease) Code(s): N18.9 - CHRONIC KIDNEY DISEASE, UNSPECIFIED (3) Flutter-fibrillation Code(s): I48.91 - UNSPECIFIED ATRIAL FIBRILLATION; I48.92 - UNSPECIFIED ATRIAL FLUTTER (4) Hypertensive emergency Code(s): I16.1 - HYPERTENSIVE EMERGENCY Assessment/Plan Current Medications Generic Name Dose Route Start Last Admin Trade Name Mamadou PRN Reason Stop Dose Admin Apixaban 2.5 mg 10/29/19 22:00 11/01/19 09:23 Eliquis - PO 2.5 mg BID IMELDA Administration Diltiazem HCl 360 mg 10/30/19 10:00 11/01/19 09:23 Cardizem Cd - PO 360 mg DAILY IMELDA Administration Furosemide 40 mg 10/26/19 10:00 11/01/19 09:23 Lasix - PO 40 mg DAILY IMELDA Administration Isosorbide Mononitrate 90 mg 10/31/19 10:00 11/01/19 09:24 Imdur - PO 90 mg DAILY IMELDA Administration Losartan Potassium 100 mg 10/27/19 10:30 11/01/19 09:23 Cozaar - PO 100 mg DAILY IMELDA Administration Polyethylene Glycol 17 gm 10/29/19 22:00 11/01/19 09:27 Miralax (For Daily Use) - PO 17 gm BID IMELDA Administration Potassium Chloride 20 meq 10/27/19 10:00 11/01/19 09:23 K-Dur - PO 20 meq DAILY IMELDA Administration Theophylline 300 mg 10/26/19 15:45 11/01/19 09:27 Yony-24 PO 300 mg DAILY IMELDA Administration Impression 1. CKD 2. DONN 3. HTN 4. a-flutter 5. asthma 6. non compliance with meds 7. hypokalemia Plan - cont to monitor bp - monitor pulse - cont lasix - monitor renal function - will need close outpt follow up - discussed compliance with meds
--- NOTE | 2019-11-01 13:11 | PN ---
Progress Note (short form) - Note Progress Note: cc: HTN s: no sob palps dizzy Current Medications Generic Name Dose Route Start Last Admin Trade Name Mamadou PRN Reason Stop Dose Admin Apixaban 2.5 mg 10/29/19 22:00 10/31/19 09:43 Eliquis - PO 2.5 mg BID IMELDA Administration Diltiazem HCl 360 mg 10/30/19 10:00 10/31/19 09:43 Cardizem Cd - PO 360 mg DAILY IMELDA Administration Furosemide 40 mg 10/26/19 10:00 10/31/19 09:43 Lasix - PO 40 mg DAILY IMELDA Administration Isosorbide Mononitrate 90 mg 10/31/19 10:00 10/31/19 09:43 Imdur - PO 90 mg DAILY IMELDA Administration Losartan Potassium 100 mg 10/27/19 10:30 10/31/19 09:43 Cozaar - PO 100 mg DAILY IMELDA Administration Polyethylene Glycol 17 gm 10/29/19 22:00 10/31/19 09:44 Miralax (For Daily Use) - PO 17 gm BID IMELDA Administration Potassium Chloride 20 meq 10/27/19 10:00 10/31/19 09:43 K-Dur - PO 20 meq DAILY IMELDA Administration Theophylline 300 mg 10/26/19 15:45 10/31/19 09:42 Yony-24 PO 300 mg DAILY IMELDA Administration Vital Signs Period Temp Pulse Resp BP Sys/Jack Pulse Ox Last 24 Hr 97.8 F-98.4 F 53-78 16-20 120-147/69-95 93-99 Constitutional: Yes: No Distress Eyes: Yes: Conjunctiva Clear Cardiovascular: Yes: rr, Pulse Irregular, s1s2 Respiratory: cta bl nl eff Edema: no Neurological: Yes: Alert no jaundice diaphoresis aao3 EKG: Image Reviewed tele: afib, rate ok, enrico overnight IMP/PLAN: htn: -improved - increased dilt to 360 and imdur to 90. 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 Has appt with Dr. Ronquillo at [place] cp: -episode of cp 10/29 when her bp was very elevated. ECG and trop unchanged. After bp was controlled her cp resolved. Likely cp was due to very high bp, will cont to titrate meds as above. Monitor for recurrence.
--- NOTE | 2019-11-01 17:42 | PN ---
Progress Note, Physician History of Present Illness: stable - Current Medication List Current Medications: Active Medications Apixaban (Eliquis -) 2.5 mg PO BID [facility] Last Admin: 11/01/19 09:23 Dose: 2.5 mg Documented by: Bisacodyl (Dulcolax -) 10 mg PO ONCE ONE Stop: 11/02/19 10:25 Diltiazem HCl (Cardizem Cd -) 360 mg PO DAILY [facility] Last Admin: 11/01/19 09:23 Dose: 360 mg Documented by: Furosemide (Lasix -) 40 mg PO DAILY [facility] Last Admin: 11/01/19 09:23 Dose: 40 mg Documented by: Isosorbide Mononitrate (Imdur -) 90 mg PO DAILY [facility] Last Admin: 11/01/19 09:24 Dose: 90 mg Documented by: Losartan Potassium (Cozaar -) 100 mg PO DAILY [facility] Last Admin: 11/01/19 09:23 Dose: 100 mg Documented by: Polyethylene Glycol (Miralax (For Daily Use) -) 17 gm PO BID [facility] Last Admin: 11/01/19 09:27 Dose: 17 gm Documented by: Potassium Chloride (K-Dur -) 20 meq PO DAILY [facility] Last Admin: 11/01/19 09:23 Dose: 20 meq Documented by: Theophylline (Yony-24) 300 mg PO DAILY [facility] Last Admin: 11/01/19 09:27 Dose: 300 mg Documented by: - Objective Vital Signs: Vital Signs Temperature 97.8 F 11/01/19 14:00 Pulse Rate 77 11/01/19 14:00 Respiratory Rate 18 11/01/19 10:00 Blood Pressure 130/70 11/01/19 14:00 O2 Sat by Pulse Oximetry (%) 94 L 11/01/19 09:00 Constitutional: Yes: No Distress HENT: Yes: Atraumatic Neck: Yes: Supple Cardiovascular: Yes: Pulse Irregular Respiratory: Yes: CTA Bilaterally Extremities: Yes: WNL Edema: No Neurological: Yes: Alert, Oriented Labs: CBC, BMP 10/31/19 06:10 10/31/19 06:10 INR, PTT INR 1.06 (0.83-1.09) 10/25/19 23:40 Problem List - Problems (1) Hypertension Assessment/Plan: meds getting adjusted bp much better Code(s): I10 - ESSENTIAL (PRIMARY) HYPERTENSION Qualifiers: Hypertension type: essential hypertension Qualified Code(s): I10 - Essential (primary) hypertension (2) CKD (chronic kidney disease) Assessment/Plan: monitor renal onboard Code(s): N18.9 - CHRONIC KIDNEY DISEASE, UNSPECIFIED (3) Flutter-fibrillation Assessment/Plan: on meds monitor Code(s): I48.91 - UNSPECIFIED ATRIAL FIBRILLATION; I48.92 - UNSPECIFIED ATRIAL FLUTTER (4) Goiter Assessment/Plan: tsh wnl will get endocrine consult Code(s): E04.9 - NONTOXIC GOITER, UNSPECIFIED
[2019-11-02 07:34] LABS: CALCIUM 9.3 mg/dL (8.5-10.1); CREATININE 1.3 mg/dL (0.55-1.3); POTASSIUM 3.6 mmol/L (3.5-5.1)
--- NOTE | 2019-11-02 09:08 | CONSULT ---
Consult Consult Specialty:: Endocrinology Referred by:: Dr Menezes Reason for Consultation:: Goiter - History of Present Illness Chief Complaint: SOB History of Present Illness: This is a 84 yo female with PMH of CKD stage 3, ?CHF, HTN, and asthma admitted for elevated BP to 200s systolic. Pt reported that over the last 2-3 days she has had intermittent blurry vision and headaches. She also complained of decreased urination and mild SOB with exertion during the same duration. Pt also reports increased gait instability over the last several months, with 2-3 mechanical falls without syncope or head trauma. Pt denied chest pain, abdominal pain, fevers, chills, nausea, vomiting, constipation, diarrhea, confusion after falls, dizziness, weakness, dysuria, or recent weight loss. On arrival pt's blood pressure was 211/124 and was experiencing blurry vision and a headache. Pt found to be in Atrial flutter/Fibrillation and referre for evaltuation of her thyroid status. Pt currently in bed in [facility], eager to go home. - History Source History Provided By: Patient, Medical Record - Past Medical History Cardio/Vascular: Yes: HTN Pulmonary: Yes: Asthma Gastrointestinal: Yes: Constipation, Hiatal Hernia, Irritable Bowel Disease Renal/: Yes: Hematuria ...LMP: 10/25/19 ...: No Musculoskeletal: Yes: Osteoarthritis Endocrine: Yes: Other (thyroid multinodular goiter by US 05/23) - Past Surgical History Past Surgical History: Yes: Appendectomy, Hernia Repair (Left Inguinal with Mesh.), Hysterectomy (LESVIA/BSO with Lysis of Adhesions), Tonsillectomy - Alcohol/Substance Use Hx Alcohol Use: No History of Substance Use: reports: None - Smoking History Smoking history: Unknown if ever smoked Have you smoked in the past 12 months: No Aproximately how many cigarettes per day: 0 - Social History Usual Living Arrangement: Alone (Never ) ADL: Independent 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 History of Recent Travel: No Home Medications - Allergies Allergies/Adverse Reactions: Allergies Allergy/AdvReac Type Severity Reaction Status Date / Time adhesive tape Allergy Intermediate Rash Verified 10/25/19 15:37 aspirin Allergy Verified 10/25/19 15:37 cephalexin monohydrate Allergy Verified 10/25/19 15:37 [From Keflex] Penicillins Allergy Verified 10/25/19 15:37 - Home Medications Home Medications: Ambulatory Orders Albuterol Sulfate Inhaler - [Ventolin HFA Inhaler -] 1 - 2 inh PO QID 01/18/17 Potassium Chloride 20 meq PO DAILY 01/18/17 Theophylline Anhydrous [Yony-24] 300 mg PO DAILY 01/18/17 Furosemide [Lasix -] 40 mg PO DAILY 10/25/19 Losartan Potassium [Cozaar] 100 mg PO DAILY 10/25/19 Apixaban [Eliquis -] 2.5 mg PO BID #60 tablet 11/01/19 Diltiazem Cd [Cardizem Cd -] 360 mg PO DAILY #30 cap 11/01/19 Isosorbide Mononitrate [Imdur -] 90 mg PO DAILY #30 cap 11/01/19 Losartan Potassium [Cozaar -] 100 mg PO DAILY #30 tablet 11/01/19 Family Medical History Family History: Denies Review of Systems - Review of Systems Constitutional: reports: No Symptoms Eyes: reports: No Symptoms HENT: reports: No Symptoms Neck: reports: No Symptoms Cardiovascular: reports: No Symptoms Respiratory: reports: No Symptoms Gastrointestinal: reports: No Symptoms Genitourinary: reports: No Symptoms Neurological: reports: No Symptoms Endocrine: reports: No Symptoms Physical Exam Vital Signs: Vital Signs Temperature 97.4 F L 11/02/19 02:00 Pulse Rate 73 11/02/19 06:00 Respiratory Rate 20 11/02/19 06:00 Blood Pressure 151/93 11/02/19 06:00 O2 Sat by Pulse Oximetry (%) 96 11/02/19 02:00 Constitutional: Yes: No Distress, Calm Eyes: Yes: Conjunctiva Clear, EOM Intact HENT: Yes: Atraumatic, Normocephalic Neck: Yes: Supple, Trachea Midline Cardiovascular: Yes: Pulse Irregular Respiratory: Yes: Regular, CTA Bilaterally Gastrointestinal: Yes: Normal Bowel Sounds, Soft Extremities: Yes: WNL Edema: No Neurological: Yes: Alert, Oriented Labs: CBC, BMP 10/31/19 06:10 11/02/19 05:50 Imaging - Results Ultrasound: Report Reviewed Problem List - Problems (1) CKD (chronic kidney disease) Code(s): N18.9 - CHRONIC KIDNEY DISEASE, UNSPECIFIED (2) Flutter-fibrillation Code(s): I48.91 - UNSPECIFIED ATRIAL FIBRILLATION; I48.92 - UNSPECIFIED ATRIAL FLUTTER (3) Goiter Code(s): E04.9 - NONTOXIC GOITER, UNSPECIFIED (4) Hypertensive emergency Code(s): I16.1 - HYPERTENSIVE EMERGENCY Assessment/Plan AP: MNG A Flutter CKD/DONN HTN Asthma TSH wnl rules out hyperthyroidism as contributing factor for A flutter Sonogram 318: Rt nodule 3.5x2.2x2.9cm Left nodule 1.4x0.7x1.2 Rpt thyroid sonogram as outpt. May need FNA depending on characteristic of the nodules Thank you for the consult. Will sign off. Please recall if necessary.
[2019-11-02] MEDS: ISOSORBIDE MONONITRATE 30 MG TAB.SR.24H (FP) PO SCH (09:34)
[2019-11-02] MEDS: POTASSIUM CHLORIDE TABS 10 MEQ TABLET.ER (FP) PO SCH (09:34)
[2019-11-02] MEDS: LOSARTAN POTASSIUM 50 MG TABLET (FP) PO SCH (09:35)
[2019-11-02] MEDS: FUROSEMIDE 40 MG TABLET (FP) PO SCH (09:35)
[2019-11-02] MEDS: APIXABAN 2.5 MG TABLET PO SCH ×2 (09:35→22:43)
[2019-11-02] MEDS: POLYETHYLENE GLYCOL 3350 119 GM BTL PO SCH ×2 (09:36→22:46)
[2019-11-02] MEDS ORDERED: PT OWN MED DRAWER 7, Y5N ONE (09:37)
[2019-11-02] MEDS: THEOPHYLLINE ANHYDROUS 100 MG CAP.ER.24H PO SCH (09:38)
[2019-11-02] MEDS ORDERED: BISACODYL 5 MG TABLET.DR (FP) PO ONE (10:24)
--- NOTE | 2019-11-02 11:56 | PN ---
Progress Note (short form) - Note Progress Note: s: no sob palps dizzy cp, asking to go home Non smoker Current Medications Generic Name Dose Route Start Last Admin Trade Name Mamadou PRN Reason Stop Dose Admin Apixaban 2.5 mg 10/29/19 22:00 11/02/19 09:35 Eliquis - PO 2.5 mg BID IM[facility] Administration Diltiazem HCl 360 mg 10/30/19 10:00 11/02/19 09:34 Cardizem Cd - PO 360 mg DAILY [facility] Administration Furosemide 40 mg 10/26/19 10:00 11/02/19 09:35 Lasix - PO 40 mg DAILY [facility] Administration Isosorbide Mononitrate 90 mg 10/31/19 10:00 11/02/19 09:34 Imdur - PO 90 mg DAILY [facility] Administration Losartan Potassium 100 mg 10/27/19 10:30 11/02/19 09:35 Cozaar - PO 100 mg DAILY [facility] Administration Polyethylene Glycol 17 gm 10/29/19 22:00 11/02/19 09:36 Miralax (For Daily Use) - PO 17 gm BID [facility] Administration Potassium Chloride 20 meq 10/27/19 10:00 11/02/19 09:34 K-Dur - PO 20 meq DAILY [facility] Administration Theophylline 300 mg 10/26/19 15:45 11/02/19 09:38 Yony-24 PO 300 mg DAILY [facility] Administration Vital Signs Period Temp Pulse Resp BP Sys/Jack Pulse Ox Last 24 Hr 97.4 F-98.1 F 54-85 18-20 126-170/64-100 94-100 Constitutional: Yes: No Distress Eyes: Yes: Conjunctiva Clear Cardiovascular: Yes: rr, Pulse Irregular, s1s2 Respiratory: cta bl nl eff Edema: no Neurological: Yes: Alert no jaundice diaphoresis aao3 Labs: CBC, BMP 10/31/19 06:10 11/02/19 05:50 - ....Imaging EKG: Image Reviewed tele: afib, rate ok IMP/PLAN: htn: -labile at times but overall improved on current regimen, cont same ckd: -cr at baseline, renal following afib/aflutter: -new onset -rate controlled on dilt -chadsvasc warrants AC, cont Eliquis 2.5mg BID le edema/venous insuff: -cont po lasix 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 Has appt with Dr. Ronquillo at [facility] for ne
--- NOTE | 2019-11-02 13:57 | PN ---
Progress Note, Physician History of Present Illness: Pt seen and examined at bedside. She is awake and alert. She denies shortness of breath. - Current Medication List Current Medications: Active Medications Apixaban (Eliquis -) 2.5 mg PO BID [facility] Last Admin: 11/02/19 09:35 Dose: 2.5 mg Documented by: Diltiazem HCl (Cardizem Cd -) 360 mg PO DAILY [facility] Last Admin: 11/02/19 09:34 Dose: 360 mg Documented by: Furosemide (Lasix -) 40 mg PO DAILY [facility] Last Admin: 11/02/19 09:35 Dose: 40 mg Documented by: Isosorbide Mononitrate (Imdur -) 90 mg PO DAILY [facility] Last Admin: 11/02/19 09:34 Dose: 90 mg Documented by: Losartan Potassium (Cozaar -) 100 mg PO DAILY [facility] Last Admin: 11/02/19 09:35 Dose: 100 mg Documented by: Polyethylene Glycol (Miralax (For Daily Use) -) 17 gm PO BID [facility] Last Admin: 11/02/19 09:36 Dose: 17 gm Documented by: Potassium Chloride (K-Dur -) 20 meq PO DAILY [facility] Last Admin: 11/02/19 09:34 Dose: 20 meq Documented by: Theophylline (Yony-24) 300 mg PO DAILY [facility] Last Admin: 11/02/19 09:38 Dose: 300 mg Documented by: - Objective Vital Signs: Vital Signs Temperature 97.9 F 11/02/19 10:00 Pulse Rate 74 11/02/19 10:00 Respiratory Rate 18 11/02/19 10:00 Blood Pressure 170/100 11/02/19 10:00 O2 Sat by Pulse Oximetry (%) 100 11/02/19 10:00 Constitutional: Yes: Calm Eyes: Yes: Conjunctiva Clear HENT: Yes: Atraumatic Neck: Yes: Supple Cardiovascular: Yes: S1, S2 Respiratory: Yes: CTA Bilaterally Gastrointestinal: Yes: Normal Bowel Sounds, Soft Genitourinary: Yes: WNL Musculoskeletal: Yes: WNL Edema: Yes Edema: LLE: Trace, RLE: Trace Neurological: Yes: Oriented Psychiatric: Yes: Oriented Labs: CBC, BMP 10/31/19 06:10 11/02/19 05:50 INR, PTT INR 1.06 (0.83-1.09) 10/25/19 23:40 Problem List - Problems (1) DONN (acute kidney injury) Code(s): N17.9 - ACUTE KIDNEY FAILURE, UNSPECIFIED (2) CKD (chronic kidney disease) Code(s): N18.9 - CHRONIC KIDNEY DISEASE, UNSPECIFIED (3) Flutter-fibrillation Code(s): I48.91 - UNSPECIFIED ATRIAL FIBRILLATION; I48.92 - UNSPECIFIED ATRIAL FLUTTER (4) Hypertensive emergency Code(s): I16.1 - HYPERTENSIVE EMERGENCY Assessment/Plan Current Medications Generic Name Dose Route Start Last Admin Trade Name Mamadou PRN Reason Stop Dose Admin Apixaban 2.5 mg 10/29/19 22:00 11/02/19 09:35 Eliquis - PO 2.5 mg BID IM[facility] Administration Diltiazem HCl 360 mg 10/30/19 10:00 11/02/19 09:34 Cardizem Cd - PO 360 mg DAILY [facility] Administration Furosemide 40 mg 10/26/19 10:00 11/02/19 09:35 Lasix - PO 40 mg DAILY [facility] Administration Isosorbide Mononitrate 90 mg 10/31/19 10:00 11/02/19 09:34 Imdur - PO 90 mg DAILY [facility] Administration Losartan Potassium 100 mg 10/27/19 10:30 11/02/19 09:35 Cozaar - PO 100 mg DAILY [facility] Administration Polyethylene Glycol 17 gm 10/29/19 22:00 11/02/19 09:36 Miralax (For Daily Use) - PO 17 gm BID [facility] Administration Potassium Chloride 20 meq 10/27/19 10:00 11/02/19 09:34 K-Dur - PO 20 meq DAILY [facility] Administration Theophylline 300 mg 10/26/19 15:45 11/02/19 09:38 Yony-24 PO 300 mg DAILY [facility] Administration Impression 1. CKD 2. DONN 3. HTN 4. a-flutter 5. asthma 6. non compliance with meds 7. hypokalemia Plan - cardio input appreciated - bp labile at times - repeat bp after am meds - monitor renal function - will need close outpt follow up
--- NOTE | 2019-11-02 17:28 | PN ---
Progress Note, Physician History of Present Illness: stable - Current Medication List Current Medications: Active Medications Apixaban (Eliquis -) 2.5 mg PO BID [facility] Last Admin: 11/02/19 09:35 Dose: 2.5 mg Documented by: Diltiazem HCl (Cardizem Cd -) 360 mg PO DAILY [facility] Last Admin: 11/02/19 09:34 Dose: 360 mg Documented by: Furosemide (Lasix -) 40 mg PO DAILY [facility] Last Admin: 11/02/19 09:35 Dose: 40 mg Documented by: Isosorbide Mononitrate (Imdur -) 90 mg PO DAILY [facility] Last Admin: 11/02/19 09:34 Dose: 90 mg Documented by: Losartan Potassium (Cozaar -) 100 mg PO DAILY [facility] Last Admin: 11/02/19 09:35 Dose: 100 mg Documented by: Polyethylene Glycol (Miralax (For Daily Use) -) 17 gm PO BID [facility] Last Admin: 11/02/19 09:36 Dose: 17 gm Documented by: Potassium Chloride (K-Dur -) 20 meq PO DAILY [facility] Last Admin: 11/02/19 09:34 Dose: 20 meq Documented by: Theophylline (Yony-24) 300 mg PO DAILY [facility] Last Admin: 11/02/19 09:38 Dose: 300 mg Documented by: - Objective Vital Signs: Vital Signs Temperature 97.9 F 11/02/19 14:00 Pulse Rate 79 11/02/19 14:00 Respiratory Rate 18 11/02/19 10:00 Blood Pressure 137/72 11/02/19 14:00 O2 Sat by Pulse Oximetry (%) 100 11/02/19 10:00 Constitutional: Yes: No Distress HENT: Yes: Atraumatic Neck: Yes: Supple Cardiovascular: Yes: Pulse Irregular Respiratory: Yes: CTA Bilaterally Extremities: Yes: WNL Neurological: Yes: Alert, Oriented Labs: CBC, BMP 10/31/19 06:10 11/02/19 05:50 INR, PTT INR 1.06 (0.83-1.09) 10/25/19 23:40 Problem List - Problems (1) Hypertension Assessment/Plan: doing well dc in am Code(s): I10 - ESSENTIAL (PRIMARY) HYPERTENSION Qualifiers: Hypertension type: essential hypertension Qualified Code(s): I10 - Essential (primary) hypertension (2) CKD (chronic kidney disease) Assessment/Plan: monitor renal onboard Code(s): N18.9 - CHRONIC KIDNEY DISEASE, UNSPECIFIED (3) Flutter-fibrillation Assessment/Plan: on meds monitor Code(s): I48.91 - UNSPECIFIED ATRIAL FIBRILLATION; I48.92 - UNSPECIFIED ATRIAL FLUTTER (4) Goiter Assessment/Plan: tsh wnl will get endocrine consult Code(s): E04.9 - NONTOXIC GOITER, UNSPECIFIED
--- NOTE | 2019-11-03 02:20 | PN ---
Progress Note (short form) - Note Progress Note: Episodic Note: 11/03/2019@ 2:17am Called by nurse patient had 2 pauses noted on telemetry of 3.17 seconds and another pause of about 2 seconds. She was sleeping at that time of this event and she was asymptomatic. Heart rate currently ranging in the 50's and in atrial flutter. Cardizem 360 mg was stopped. Cardiology following patient and will review in the am. Blessing Adler.Addi Visit type - Emergency Visit Emergency Visit: No - New Patient This patient is new to me today: Yes Date on this admission: 11/03/19 - Critical Care Critical Care patient: No - Discharge Referral Referred to [facility] Med [facility] No - Medication Review Med list reviewed for High Risk Meds patients 65 and older: No
--- NOTE | 2019-11-03 06:00 | PN ---
Progress Note, Physician Chief Complaint: walking around comfortable Edema improved TELE: Controlled AFL, one pause about 3 seconds, asx. History of Present Illness: AFL CKD HTN CHF MR Non smoker - Current Medication List Current Medications: Active Medications Apixaban (Eliquis -) 2.5 mg PO BID [facility] Last Admin: 11/02/19 22:43 Dose: 2.5 mg Documented by: Furosemide (Lasix -) 40 mg PO DAILY [facility] Last Admin: 11/02/19 09:35 Dose: 40 mg Documented by: Isosorbide Mononitrate (Imdur -) 90 mg PO DAILY [facility] Last Admin: 11/02/19 09:34 Dose: 90 mg Documented by: Losartan Potassium (Cozaar -) 100 mg PO DAILY [facility] Last Admin: 11/02/19 09:35 Dose: 100 mg Documented by: Polyethylene Glycol (Miralax (For Daily Use) -) 17 gm PO BID [facility] Last Admin: 11/02/19 22:46 Dose: Not Given Documented by: Potassium Chloride (K-Dur -) 20 meq PO DAILY [facility] Last Admin: 11/02/19 09:34 Dose: 20 meq Documented by: Theophylline (Yony-24) 300 mg PO DAILY [facility] Last Admin: 11/02/19 09:38 Dose: 300 mg Documented by: - Objective Vital Signs: Vital Signs Temperature 97.4 F L 11/03/19 02:00 Pulse Rate 56 L 11/03/19 02:00 Respiratory Rate 20 11/03/19 02:00 Blood Pressure 147/90 11/03/19 02:00 O2 Sat by Pulse Oximetry (%) 100 11/02/19 10:00 Constitutional: Yes: Calm Cardiovascular: Yes: Regular Rate and Rhythm (flutter) Respiratory: Yes: CTA Bilaterally (no rales) Gastrointestinal: Yes: Soft Edema: Yes Edema: LLE: Trace, RLE: Trace Neurological: Yes: Alert, Oriented ...Motor Strength: WNL Labs: CBC, BMP 10/31/19 06:10 11/02/19 05:50 INR, PTT INR 1.06 (0.83-1.09) 10/25/19 23:40 Assessment/Plan IMP/PLAN: htn: -labile at times but overall improved on current regimen, cont same ckd: -cr at baseline, renal following afib/aflutter: -new onset -rate controlled on dilt -chadsvasc warrants AC, cont Eliquis 2.5mg BID le edema/venous insuff: -cont po lasix 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 Has appt with Dr. Ronquillo at [facility] for dc today with outpt f/u with me in 1-2 weeks
[2019-11-03] MEDS ORDERED: PT OWN MED DRAWER 7, Y5N ONE (10:14)
[2019-11-03] MEDS: POTASSIUM CHLORIDE TABS 10 MEQ TABLET.ER (FP) PO SCH (10:17)
[2019-11-03] MEDS: LOSARTAN POTASSIUM 50 MG TABLET (FP) PO SCH (10:17)
[2019-11-03] MEDS: FUROSEMIDE 40 MG TABLET (FP) PO SCH (10:17)
[2019-11-03] MEDS: ISOSORBIDE MONONITRATE 30 MG TAB.SR.24H (FP) PO SCH (10:19)
[2019-11-03] MEDS: POLYETHYLENE GLYCOL 3350 119 GM BTL PO SCH (10:19)
[2019-11-03] MEDS: APIXABAN 2.5 MG TABLET PO SCH (10:19)
[2019-11-03] MEDS: THEOPHYLLINE ANHYDROUS 100 MG CAP.ER.24H PO SCH (10:20)
[2019-11-03 10:28] VITALS: BP 155/100; PULSE 77; TEMP 98.6
--- NOTE | 2019-11-03 12:33 | DS ---
Physical Examination Vital Signs: Vital Signs Temperature 98.6 F 11/03/19 10:00 Pulse Rate 77 11/03/19 10:00 Respiratory Rate 20 11/03/19 10:00 Blood Pressure 155/100 11/03/19 10:00 O2 Sat by Pulse Oximetry (%) 77 L 11/03/19 10:00 Constitutional: Yes: No Distress HENT: Yes: Atraumatic Neck: Yes: Supple Cardiovascular: Yes: Pulse Irregular Respiratory: Yes: CTA Bilaterally Gastrointestinal: Yes: Normal Bowel Sounds Extremities: Yes: WNL Labs: CBC, BMP 10/31/19 06:10 11/02/19 05:50 Discharge Summary Problems reviewed: Yes Reason For Visit: ACUTE KIDNEY INJURY,HYPERTENSIVE EMERGENCY Current Active Problems DONN (acute kidney injury) (Acute) CKD (chronic kidney disease) (Acute) Flutter-fibrillation (Acute) Goiter (Acute) Hypertensive emergency (Acute) Pulmonary edema (Acute) - Instructions Referrals: Colt Menezes MD [Primary Care Provider] - - Home Medications Comprehensive Discharge Medication List: Ambulatory Orders Albuterol Sulfate Inhaler - [Ventolin HFA Inhaler -] 1 - 2 inh PO QID 01/18/17 Potassium Chloride 20 meq PO DAILY 01/18/17 Theophylline Anhydrous [Yony-24] 300 mg PO DAILY 01/18/17 Furosemide [Lasix -] 40 mg PO DAILY 10/25/19 Losartan Potassium [Cozaar] 100 mg PO DAILY 10/25/19 Apixaban [Eliquis -] 2.5 mg PO BID #60 tablet 11/01/19 Diltiazem Cd [Cardizem Cd -] 360 mg PO DAILY #30 cap 11/01/19 Isosorbide Mononitrate [Imdur -] 90 mg PO DAILY #30 cap 11/01/19 Losartan Potassium [Cozaar -] 100 mg PO DAILY #30 tablet 11/01/19 pr home
--- NOTE | 2019-11-03 14:48 | PN ---
Progress Note, Physician History of Present Illness: Pt seen and examined at bedside. She is awake and alert. - Objective Vital Signs: Vital Signs Temperature 98.6 F 11/03/19 10:00 Pulse Rate 77 11/03/19 10:00 Respiratory Rate 20 11/03/19 10:00 Blood Pressure 155/100 11/03/19 10:00 O2 Sat by Pulse Oximetry (%) 77 L 11/03/19 10:00 Constitutional: Yes: Calm Eyes: Yes: Conjunctiva Clear HENT: Yes: Atraumatic Neck: Yes: Supple Cardiovascular: Yes: S1, S2 Respiratory: Yes: On Nasal O2 Gastrointestinal: Yes: Soft Genitourinary: Yes: WNL Extremities: Yes: WNL Edema: Yes Edema: LLE: Trace, RLE: Trace Neurological: Yes: Oriented Psychiatric: Yes: Oriented Labs: CBC, BMP 10/31/19 06:10 11/02/19 05:50 INR, PTT INR 1.06 (0.83-1.09) 10/25/19 23:40 Problem List - Problems (1) DONN (acute kidney injury) Code(s): N17.9 - ACUTE KIDNEY FAILURE, UNSPECIFIED (2) CKD (chronic kidney disease) Code(s): N18.9 - CHRONIC KIDNEY DISEASE, UNSPECIFIED (3) Flutter-fibrillation Code(s): I48.91 - UNSPECIFIED ATRIAL FIBRILLATION; I48.92 - UNSPECIFIED ATRIAL FLUTTER (4) Hypertensive emergency Code(s): I16.1 - HYPERTENSIVE EMERGENCY Assessment/Plan ]Current Medications Generic Name Dose Route Start Last Admin Trade Name Freq PRN Reason Stop Dose Admin Apixaban 2.5 mg 10/29/19 22:00 11/02/19 09:35 Eliquis - PO 2.5 mg BID IMELDA Administration Diltiazem HCl 360 mg 10/30/19 10:00 11/02/19 09:34 Cardizem Cd - PO 360 mg DAILY IMELDA Administration Furosemide 40 mg 10/26/19 10:00 11/02/19 09:35 Lasix - PO 40 mg DAILY IMELDA Administration Isosorbide Mononitrate 90 mg 10/31/19 10:00 11/02/19 09:34 Imdur - PO 90 mg DAILY IMELDA Administration Losartan Potassium 100 mg 10/27/19 10:30 11/02/19 09:35 Cozaar - PO 100 mg DAILY IMELDA Administration Polyethylene Glycol 17 gm 10/29/19 22:00 11/02/19 09:36 Miralax (For Daily Use) - PO 17 gm BID IMELDA Administration Potassium Chloride 20 meq 10/27/19 10:00 11/02/19 09:34 K-Dur - PO 20 meq DAILY IM[facility]DA Administration Theophylline 300 mg 10/26/19 15:45 11/02/19 09:38 Yony-24 PO 300 mg DAILY IM[facility]DA Administration Impression 1. CKD 2. DONN 3. HTN 4. a-flutter 5. asthma 6. non compliance with meds 7. hypokalemia Plan - pt will follow up with me next week - discussed compliance with meds - repeat bp after am meds - monitor renal function - cont losartan
== END 2019-11-03 12:45 | disposition home or self-care (01) | DRG 683 ==
LOC: SUPCPDRO 15:19 → JER 15:19 → JERBED 18:22 → J4W 23:21
PROVIDERS: ADMIT Internal Medicine; ATTEND Internal Medicine
DX: N17.9 Acute kidney failure, unspecified (principal); I48.92 Unspecified atrial flutter; I16.1 Hypertensive emergency; G81.91 Hemiplegia, unspecified affecting right dominant side; E87.0 Hyperosmolality and hypernatremia; I13.0 Hypertensive heart and chronic kidney disease with heart failure and stage 1 through stage 4 chronic kidney disease, or unspecified chronic kidney disease; N18.3 Chronic kidney disease, stage 3 (moderate); J45.909 Unspecified asthma, uncomplicated; E87.6 Hypokalemia; Z91.14 Patient's other noncompliance with medication regimen; I34.0 Nonrheumatic mitral (valve) insufficiency; E04.9 Nontoxic goiter, unspecified; I48.0 Paroxysmal atrial fibrillation; I87.2 Venous insufficiency (chronic) (peripheral)
CPT/HCPCS: 36415; 70450-TC; 71046-TC-FY; 80048; 80053; 81003; 82550; 82565; 83735; 84100; 84300; 84443; 84484; 85025; 85027; 85610; 85730; 87086; 93005; 93010; 93306-TC; 94761; 97116-GP; 97161-GP; 99285-25; J1644; U0003